=== PATIENT | male | born 1960 | race Caucasian/White ===

== ENCOUNTER → 2019-04-03 | Day surgery (SDC) | payer OTHER ==
[2019-03-23 11:39] LABS: BASOPHILS % 0.4 % (0.0-1.0); EOSINOPHILS # (AUTO) 0.1 (0.0-0.4); EOSINOPHILS % 1.8 % (0.0-6.0); HEMATOCRIT 48.8 % (38.2-49.6); HEMOGLOBIN 16.1 g/dL (14.0-18.0); LYMPHOCYTES # (AUTO) 1.5 (1.0-3.2); LYMPHOCYTES % 18.9 % (18.0-39.1); MEAN CORPUSCULAR HEMOGLOBIN 29.4 pg (28-32); MEAN CORPUSCULAR VOLUME 89.1 fL (81-99); MONOCYTES # (AUTO) 0.7 (0.2-0.8); MONOCYTES % 9.5 % (4.4-11.3); NEUTROPHILS # (AUTO) 5.3 (2.1-6.9); NEUTROPHILS % 68.9 % (38.7-80.0); PLATELET COUNT 194 x10e3/uL (140-360); RED BLOOD COUNT 5.48 x10e6/uL (4.3-5.7); RED CELL DISTRIBUTION WIDTH 13.5 % (11.7-14.4)
--- NOTE | 2019-03-23 12:18 | Diagnostic Imaging Report ---
EXAMINATION: CHEST 2 VIEWS INDICATION: Pre-operative COMPARISON: None FINDINGS: LINES/TUBES:None LUNGS:Mild biapical pleural parenchymal thickening/scarring. No focal consolidation or pulmonary edema. PLEURA:No pleural effusion or pneumothorax. MEDIASTINUM:The cardiomediastinal silhouette appears normal in size and shape. Atherosclerotic calcifications of the thoracic aorta. BONES/SOFT TISSUES:No acute osseous injury. ABDOMEN:No free air under the diaphragm. IMPRESSION: No focal pneumonia or pulmonary edema. Signed by: Tri Esquivel MD on 03/23/2019 12:15 PM
[2019-03-23 12:25] LABS: ANION GAP 13.4 mmol/L (8-16); CALCIUM 9.7 mg/dL (8.4-10.2); CREATININE, SERUM 1.27 mg/dL (0.72-1.25); POTASSIUM 4.4 mmol/L (3.5-5.1)
[~2019-04-03] MED LIST: ASPIRIN81 MG PO; ATORVASTATIN CA20 MG PO; BUPIVACAINE HCL 0.5% INJ 30 ML VIAL INJ ONE; CEFAZOLIN SOD 1 GM/NS 50ML 100 ML IV ONE; DEXAMETHASONE SOD PHOS INJ 4 MG/ML VIAL ONE; FENOFIBRATE145 MG PO; FENTANYL CITRATE/PF 100MCG/2 ML INJ ONE; JARDIANCE PO; KETOROLAC TROMETHAMINE 30 MG/ML VIAL ONE; LIDOCAINE HCL 2% LOCAL INJ 5 ML SDV VIAL INJ ONE; METFORMIN HCL500 MG PO; MIDAZOLAM HCL 2 MG/2 ML VIAL ONE; NEOSTIGMINE 1 MG/ML 10ML VIAL ONE; ONDANSETRON HCL INJ 2MG/ML 2ML 2 MG/ML VIAL ONE; PROPOFOL IV EMULSION 10 MG/ML 20 ML VIAL ONE; SEVOFLURANE INHAL SOLN 250 ML PEN BTL ONE
--- OUTSIDE RECORDS SUMMARY | 2019-04-03 05:53 | XMS REPORT ---
Author Author [facility] Address Unknown Phone Unavailable Care Team Providers [employer] Name Role Phone EHSAN SMITH Unavailable Unavailable Problems This patient has no known problems. Allergies, Adverse Reactions, Alerts This patient has no known allergies or adverse reactions. Medications This patient has no known medications. Results Test Description Test Time Test Comments Text Results Atomic Results Result Comments CHEST 2 VIEWS 2019-03-23 12:14:00 [place] [address] Patient Name: ALVERTO BOSTON MR #: [id number] : 1960 Age/Sex: 58/M Req #: [id number] [facility] Physician: Ordered by: EHSAN SMITH DPM Report #: [id number] Location: OR Room/Bed: Procedure: [id number] DX/CHEST 2 VIEWS Exam Date: 03/23/19 Exam Time: 1143 REPORT STATUS: Signed EXAMINATION: CHEST 2 VIEWS INDICATION: Pre-operative COMPARISON: None FINDINGS: LINES/TUBES:None LUNGS:Mild biapical pleural parenchymal thickening/scarring. No focal consolidation or pulmonary edema. PLEURA:No pleural effusion or pneumothorax. MEDIASTINUM:The cardiomediastinal silhouette appears normal in size and shape. Atherosclerotic calcifications of the thoracic aorta. BONES/SOFT TISSUES:No acute osseous injury. ABDOMEN:No free air under the diaphragm. IMPRESSION: No focal pneumonia or pulmonary edema. Signed by: Pratik Esquivel MD on 03/23/2019 12:15 PM Dictated By: PRATIK ESQUIVEL MD 14 Transcribed By: ESTHELA on 03/23/191214 COPY TO: EHSAN SMITH DPM
--- OUTSIDE RECORDS SUMMARY | 2019-04-03 05:54 | XMS REPORT ---
Author Author Admin, Sidman Organization Unknown Address Unknown Phone Unavailable PROBLEMS Condition Status Date Provider Notes Peripheral neuropathy, feet active Klaudia Cruz Paresthesia of foot active Klaudia Cruz left foot Psa, screening active Carolina Miguelina Erectile dysfunction active Carolina Miguelina Cellulitis /abscess active Carolina Miguelina Vision impairment, both eyes, impairment level not further specified active Mario Dexterberg Swelling, limb active Mario Foley Well adult active Mariorito Dexterberg BMI 36.0-36.9 active Mario Foley Neuropathic pain active Carolina Miguelina Anxiety active Carolina Miguelina Hx of palpitations active Carolina Miguelina Achilles tendonitis, right active Carolina Miguelina Heel pain, right active Carolina Miguelina Hypertriglyceridemia active Elizabeth Silveira Viral upper respiratory tract infection completed - Elizabeth Silveira Pre-op exam completed - Elizabeth Silveira Screening for malignant neoplasm, colon completed - Elizabeth Silveira Neuroma, foot completed - Elizabeth Silveira DYSURIA completed - Elizabeth Silveira DIABETES MELLITUS active Abbi Radha OBESITY active Abbi Radha HYPERGLYCEMIA completed - Abbi Garcia TINNITUS, CHRONIC, BILATERAL completed - Elizabeth Silveira TRANSAMINASES, SERUM, ELEVATED completed - Elizabeth Silveira Elevated ON statin HYPERLIPIDEMIA active Debbie Aj KNEE PAIN completed - Elizabeth Silveira left lateral knee - only after kneeling on floor URI active Carolina Miguelina GERD active Immanuel Hernandezi HYPOTHYROIDISM completed - Elizabeth Silveira ENCOUNTERS Date Type Provider Location Encounter Diagnosis - Ambulatory Encounter Klaudia Davis [facility] Peripheral neuropathy, feet - Ambulatory Encounter [facility] - [facility]ulatory Encounter Carolina Miguelina Carolina Miguelina Valeri Barnes [facility] UNK - Ambulatory Encounter Carolina Miguelina Carolina Miguelina LinkLogic [facility] UNK - Ambulatory Encounter Carolina Miguelina Carolina Miguelina LinkLogic [facility] UNK - Ambulatory Encounter Carolina Miguelina Carolina Miguelina [facility] UNK - Ambulatory Encounter Carolina Miguelina Carolina Miguelina LinkLogic [facility] UNK - Ambulatory Encounter Fax Status [facility] UNK - Ambulatory Encounter Fax Status [facility] UNK - Ambulatory Encounter Fax Status [facility] UNK - Ambulatory Encounter Fax Status [facility] UNK - Ambulatory Encounter Fax Status [facility] UNK - Ambulatory Encounter Fax Status [facility] UNK - Ambulatory Encounter Klaudia Cruz [facility] UNK - Ambulatory Encounter Klaudia Spainendez [facility] Paresthesia of foot - Ambulatory Encounter Carolina Miguelina Mcintyre [facility] UNK - Ambulatory Encounter Carolina Miguelina Mcintyre [facility] UNK - Ambulatory Encounter Carolina Miguelina Mcintyre Kathe Ryan Shi [facility] UNK - Ambulatory Encounter Fax Status [facility] Services UNK - Ambulatory Encounter [facility]laudia Cruz [facility] UN[facility] - Ambulatory Encounter Carolina Miguelina Mcintyre [facility] UNK - Ambulatory Encounter Carolina Miguelina Beachez [facility] Psa, screening - Ambulatory Encounter Carolina Miguelina Mcintyre Link[facility] UNK - Ambulatory Encounter Carolina Miguelina Mcintyre Link[facility] UNK - Ambulatory Encounter Fax Status [facility] Services UNK - Ambulatory Encounter Carolina Miguelina Mcintyre LinkLogic [facility] UNK - Ambulatory Encounter Carolina Miguelina King [facility] Erectile dysfunction - Ambulatory Encounter Carolina Miguelina Mcintyre [facility] UNK - Ambulatory Encounter Carolina Miguelina Zheng [facility] UNK - Ambulatory Encounter Sharlene VillatoroArensasha [facility] UNK - Ambulatory Encounter Carolina Miguelina Donnelly [facility] UNK - Ambulatory Encounter LSJ Care Coordination Desktop LinkLogic Sushma Donnelly [facility] UNK - Ambulatory Encounter Carolina Miguelina Mcintyre [facility] UNK - Ambulatory Encounter Carolina Miguelina Mcintyre LinkLogeduardo [facility] UNK - Ambulatory Encounter Carolina Miguelina Mcintyre [facility] UNK - Ambulatory Encounter Carolina Miguelina Orellana [facility] UNK - Ambulatory Encounter Sushma Donnelly [facility] UNK - Ambulatory Encounter Carolina Miguelina Mcintyre [facility] UNK - Ambulatory Encounter Carolina Miguelina Mcintyre LinkLogeduardo [facility] UNK - Ambulatory Encounter Carolina Miguelina Mcintyre [facility] UNK - Ambulatory Encounter Carolina Miguelina Mcintyre [facility] UNK - Ambulatory Encounter Carolina Miguelina Mcintyre Shawnamichael Loving [facility] UNK - Ambulatory Encounter Sushma Donnelly [facility] UNK - Ambulatory Encounter Carolina Miguelina Mcintyre [facility] UNK - Ambulatory Encounter Carolina Miguelina Mcintyre [facility] UNK - Ambulatory Encounter Carolina Miguelina Mcintyre Vanita Zheng [facility] URICellulitis /abscess - Ambulatory Encounter F[facility] - [facility] Encounter Brittney Dozier [facility] UNK - Ambulatory Encounter Brittney Dozier [facility] UNK - Ambulatory Encounter Fax Status [facility] UNK - [facility]ulatory [facility] - [facility]ulatory En[facility] - Ambulatory Encounter Mario Davis [facility] UNK - Ambulatory Encounter Mario Foley [facility] UNK - Ambulatory Encounter Mario [facility]oley [facility] UN[facility] - Ambulatory Encounter [facility] UN[facility] - Ambulatory Encounter Fax Status LinkLogic [facility] UNK - Ambulatory Encounter Mario Avilez [facility] BMI 36.0-36.9Well adultSwelling, limbVision impairment, both eyes, impairment level not further specified - Ambulatory Encounter [facility] - Ambulatory Encounter Carolina Mcintyre LinkLogic [facility] UNK - Ambulatory Encounter Carolina Mcintyre LinkLog[facility] UNK - Ambulatory Encounter Carolina Mcintyre [facility] UNK - Ambulatory Encounter Carolina Mcintyre [facility] UNK - Ambulatory Encounter Carolina Park [facility] UNK - Ambulatory Encounter Carolina Miguelina Carolina Miguelina [facility] UNK - Ambulatory Encounter Fax Status LinkLogic [facility] Services UNK - Ambulatory Encounter Fax Status LinkLogic [facility] Services UNK - Ambulatory Encounter Fax Status LinkLogic [facility] Services UNK - Ambulatory Encounter Sharlene Mensah MedAdherence [facility] UNK - Ambulatory Encounter Carolina Miguelina Figueroa Miguelina LinkLogic [facility] UNK - Ambulatory Encounter Sharlene Mensah [facility] UN[facility] - Ambulatory Encounter Carmen Loving [facility] UNK - Ambulatory Encounter Carolina Figueroa Miguelina [facility] UNK - Ambulatory Encounter Carolina Beasley [facility] Hx of palpitationsAnxietyNeuropathic pain - Ambulatory Encounter Mei De La O [facility] UNK - Ambulatory Encounter Valeri Barnes [facility] UNK - Ambulatory Encounter Valeri Barnes [facility] LinkLogic [facility] UNK - Ambulatory Encounter Carolina Figueroa Miguelina LinkLogic [facility] UNK - Ambulatory Encounter Mario Foley [facility] UN[facility] - Ambulatory Encounter Valeri Barnes [facility] UNK - Ambulatory Encounter Valeri Barnes [facility] UNK - Ambulatory Encounter Carolina Miguelina Mcintyre LinkLogic [facility] UNK - Ambulatory Encounter Carolina Miguelina Mcintyre [facility] UNK - Ambulatory Encounter Carolina Miguelina Loving [facility] UNK - Ambulatory Encounter Valorie Estrella [facility] UNK - Ambulatory Encounter Valorie Estrella [facility] UNK - Ambulatory Encounter Carolina Miguelina Mcintyre [facility] UNK - Ambulatory Encounter Carolina Miguelina Mcintyre LinkLogic [facility] UNK - Ambulatory Encounter Fax Status [facility] UNK - Ambulatory Encounter Fax Status [facility] UNK - Ambulatory Encounter Fax Status [facility] UNK - Ambulatory Encounter Alisson Carrero [facility] UNK - Ambulatory Encounter Carolina Miguelina Mcintyre [facility] UNK - Ambulatory Encounter Carolina Jungome Craolina Miguelina Danica Shi [facility] UNK - Ambulatory Encounter Carolina Miguelina Mcintyre LinkLogic [facility] UNK - Ambulatory Encounter Carolina Miguelina Carolina Miguelina LinkLogic [facility] UNK - Ambulatory Encounter Carolina Miguelina Carolina Miguelina Link[facility]ic [facility] UNK - Ambulatory Encounter Carolina Miguelina Carolina Miguelina LinkLogic [facility] UNK - Ambulatory Encounter Carolina Miguelina Carolina Miguelina LinkLog[facility] UNK - Ambulatory Encounter Carolina Mcintyre LinkLog[facility] UNK - Ambulatory Encounter Jigna Jurado [facility] UNK - Ambulatory Encounter Carolina Shi [facility] UNK - Ambulatory Encounter Vanita Oliver [facility] UNK - Ambulatory Encounter Carolina Mcintyre [facility] Achilles tendonitis, right - Ambulatory Encounter Fax Status [facility] UNK - Ambulatory Encounter Fax Status [facility] UNK - Ambulatory Encounter Fax Status LinkLogic [facility] Services UNK - Ambulatory Encounter Carolina Mcintyre [facility] UNK - Ambulatory Encounter Carolina Mcintyre Clarissa Avilez [facility] Heel pain, right - Ambulatory Encounter Carolina Mcintyre [facility] UNK - Ambulatory Encounter Carolina Miguelina Mcintyre LinkLogic [facility] UNK - Ambulatory Encounter Carolina Miguelina Mcintyre Link[facility] UNK - Ambulatory Encounter Carolina Miguelina Mcintyre [facility] UNK - Ambulatory Encounter Carolina Miguelina Mcintyre [facility] UNK - Ambulatory Encounter Carolina Miguelina Mcintyre Funmilayo Olsen [facility] UNK - Ambulatory Encounter Azul Cruz [facility] UNK - Ambulatory Encounter Azul Cruz [facility] UNK - Ambulatory Encounter Mario Foley [facility] UNK - [facility] - Ambulatory Encounter Valeri Johnson [facility] UNK - Ambulatory Encounter Tess Nunez [facility] UNK - Ambulatory Encounter Elizabeth Johnson Silveira [facility] UNK - Ambulatory Encounter Elizabeth Johnson Silveira [facility] UNK - Ambulatory Encounter Mario Scott [facility] HYPOTHYROIDISMHypertriglyceridemia - Ambulatory Encounter [facility] - Ambulatory Encounter Elizabeth Silveira [facility] UNK - Ambulatory Encounter LSJ Lab Support Desktop [facility] Johnson Silveira [facility] UNK - Ambulatory Encounter Elizabeth Silveira [facility] UNK - Ambulatory Encounter Elizabeth Silveira [facility] UNK - Ambulatory Encounter [facility]el [facility] KNEE PAINTRANSAMINASES, SERUM, ELEVATEDTINNITUS, CHRONIC, BILATERALDYSURIANeuroma, footScreening for malignant neoplasm, colonPre-op examViral upper respiratory tract infection - Ambulatory Encounter Elizabeth Silveira [facility] UNK - Ambulatory Encounter Ferny Moran [facility] UNK - Ambulatory Encounter Ferny Moran [facility] UNK - Ambulatory Encounter Lizzie Scott [facility] UNK - [facility] UNK - Ambulatory Encounter Elizabeth Rodriguezillo Elizabeth [facility] [place] UNK - Ambulatory Encounter Jigna Jurado [facility] Viral upper respiratory tract infection - Ambulatory Encounter Azul Cruz [facility] UNK - Ambulatory Encounter Azul Cruz [facility] UNK - Ambulatory Encounter Ferny Moran [facility] UNK - Ambulatory Encounter Ferny Moran [facility] UNK - Ambulatory Encounter Ferny Moran [facility] UNK - Ambulatory Encounter Ferny Moran [facility] UNK - Ambulatory Encounter Ferny Moran [facility] UNK - Ambulatory Encounter Ferny Moran [facility] UNK - Ambulatory Encounter Ferny Moran [facility] UNK - Ambulatory Encounter Ferny Moran [facility] UNK - Ambulatory Encounter Ferny Soares [facility] Pre-op exam - Ambulatory Encounter Funmilayo Johnson [facility] UNK - Ambulatory Encounter Fax Status [facility] Services UNK - Ambulatory Encounter Fax Status [facility] UNK - Ambulatory Encounter Fax Status [facility] UNK - Ambulatory Encounter Ferny Moran [facility] UNK - Ambulatory Encounter Kathe Ryan [facility] UNK - Ambulatory Encounter Ferny Moran [facility] UNK - Ambulatory Encounter Ferny Moran [facility] UNK - Ambulatory Encounter Ferny Rodriguez [facility] Neuroma, footScreening for malignant neoplasm, colon - Ambulatory Encounter Sharlene Mensah [facility] UNK - Ambulatory Encounter Sharlene Mensah [facility] UNK - Ambulatory Encounter Ferny Moran LinkLogeduardo [facility] UNK - Ambulatory Encounter Sharlene Makenna [facility] UNK - Ambulatory Encounter Sharlene Mensah [facility] UNK - Ambulatory Encounter Ferny Lane [facility] UNK - Ambulatory Encounter Ferny [facility] UNK - Ambulatory Encounter Ferny Moran LinkLogeduardo [facility] UNK - Ambulatory Encounter Ferny Moran [facility] UNK - Ambulatory Encounter Ferny Mroan [facility] UNK - Ambulatory Encounter Ferny Lane [facility] UNK - Ambulatory Encounter Carly Rodriguez [facility] UNK - Ambulatory Encounter Carly Rodriguez [facility] UNK - Ambulatory Encounter Ferny Correa [facility] UNK - Ambulatory Encounter Ferny Moran [facility] UNK - Ambulatory Encounter Sushma Donnelly [facility] UNK - Ambulatory Encounter Sharlene Mensah [facility] UNK - Ambulatory Encounter Sharlene VillatoroUniversity Of [facility]Log[facility] UNK - Ambulatory Encounter Ferny Moran [facility] UNK - Ambulatory Encounter Ferny Moran [facility] UNK - Ambulatory Encounter Ferny ClarosLogeduardo [facility] UNK - Ambulatory Encounter Suzie Barragan [facility] UNK - Ambulatory Encounter Ferny Larsen Barragan [facility] UNK - Ambulatory Encounter Salome Shi [facility] UNK - Ambulatory Encounter Edgar Grullon [facility] UNK - Ambulatory Encounter Abbi Garcia [facility] UNK - Ambulatory Encounter Christopher Sifuentes [facility] UNK - Ambulatory Encounter Jigna Goode Lillian [facility] UNK - Ambulatory Encounter Clarissa Sterling [facility] UNK - Ambulatory Encounter Clarissa Sterling [facility] UNK - Ambulatory Encounter Abbi Radhaspenser Go Radha [facility] UNK - Ambulatory Encounter LSJ Lab Support Desktop LinkLogic Clarissa Go Radha Barfieldima Radha [facility] UNK - Ambulatory Encounter Clarissa Sterling [facility] UNK - Ambulatory Encounter Clarissa Sterling [facility] UNK - Ambulatory Encounter Abbi Radhagay Go Radha [facility] UNK - Ambulatory Encounter LSJ Lab Support Desktop LinkLogic Clarissa Go Radha Barfieldima Radha [facility] UNK - Ambulatory Encounter Jigna Larsen [facility] HYPERGLYCEMIAOBESITYDIABETES MELLITUSDYSURIA - Ambulatory Encounter Ferny Morna [facility] UNK - Ambulatory Encounter Ferny Moran [facility] UNK - Ambulatory Encounter Ferny Donnelly [facility] UNK - Ambulatory Encounter Ferny Moran [facility] UNK - Ambulatory Encounter Ferny Lane [facility] UNK - Ambulatory Encounter Ferny Olsen [facility] HYPERGLYCEMIA - Ambulatory Encounter Dena Jay [facility] UNK - Ambulatory Encounter Clarissa Greerzohreh Jj [facility] UNK - Ambulatory Encounter Debbie [facility] - Ambulatory Encounter Debbie Aj Clarissa Curtis [facility] URIKNEE PAINHYPERLIPIDEMIATRANSAMINASES, SERUM, ELEVATEDTINNITUS, CHRONIC, BILATERAL - Ambulatory Encounter Tenriism Preload [facility] UNK - Ambulatory Encounter Tenriism Preload [facility] UNK - Ambulatory Encounter Tenriism Preload [facility] UNK - Ambulatory Encounter Tenriism Preload [facility] UNK - Ambulatory Encounter Tenriism Preload [facility] UNK - Ambulatory Encounter Tenriism Preload [facility] UNK - Ambulatory Encounter Tenriism Preload [facility] UNK - Ambulatory Encounter Tenriism Preload [facility] UNK - Ambulatory Encounter Tenriism Preload [facility] UNK - Ambulatory Encounter Tenriism Preload [facility] UNK - Ambulatory Encounter Tenriism Preload [facility] UNK - Ambulatory Encounter Tenriism Preload [facility] UNK - Ambulatory Encounter Tenriism Preload [facility] UNK - Ambulatory Encounter Tenriism Preload [facility] UNK - Ambulatory Encounter Tenriism Preload LinkLogic [facility] UNK - Ambulatory Encounter Tenriism Preload LinkLogic [facility] UNK - Ambulatory Encounter Tenriism Preload LinkLogic [facility] UNK - Ambulatory Encounter Tenriism Preload LinkLogic [facility] UNK - Ambulatory Encounter Tenriism Preload LinkLogic [facility] UNK - Ambulatory Encounter Tenriism Preload LinkLogic [facility] UNK - Ambulatory Encounter Tenriism Preload LinkLogic [facility] UNK - Ambulatory Encounter Tenriism Preload LinkLogic [facility] UNK - Ambulatory Encounter Tenriism Preload LinkLogic [facility] UNK - Ambulatory Encounter Tenriism Preload LinkLogic [facility] UNK - Ambulatory Encounter Tenriism Preload LinkLogic [facility] UNK - Ambulatory Encounter Tenriism Preload LinkLogic [facility] UNK - Ambulatory Encounter Tenriism Preload LinkLogic [facility] UNK - Ambulatory Encounter Tenriism Preload LinkLogic [facility] UNK - Ambulatory Encounter Tenriism Preload LinkLogic [facility] UNK - Ambulatory Encounter Tenriism Preload LinkLogic [facility] UNK - Ambulatory Encounter Tenriism Preload LinkLogic [facility] UNK - Ambulatory Encounter Tenriism Preload LinkLogic [facility] UNK - Ambulatory Encounter Tenriism Preload LinkLogic [facility] UNK - Ambulatory Encounter Tenriism Preload LinkLogic [facility] UNK - Ambulatory Encounter Tenriism Preload [facility] UNK - Ambulatory Encounter Tenriism Preload LinkLogic [facility] UNK - Ambulatory Encounter Tenriism Preload LinkLogic [facility] UNK - Ambulatory Encounter Tenriism Preload [facility] UNK - Ambulatory Encounter Tenriism Preload [facility] UNK - Ambulatory Encounter Tenriism Preload [facility] UNK - Ambulatory Encounter Tenriism Preload [facility] UNK - Ambulatory Encounter Tenriism Preload LinkLogic [facility] UNK - Ambulatory Encounter Tenriism Preload [facility] UNK - Ambulatory Encounter Tenriism Preload [facility] UNK - Ambulatory Encounter Tenriism Preload [facility] UNK - Ambulatory Encounter Zarina Sneed [facility] [facility] UNK - Ambulatory Encounter Derek Oliver [facility] HYPOTHYROIDISMGERDURI VITAL SIGNS No Information Available Allergies No Known Allergy Information REASON FOR REFERRAL Start Date - End Date Service - Podiatry - External - Cardiology - External - Endocrinology - Adult - X-RAY - X-RAY RESULTS Date Observation Value Provider Reference Range Interpretation Location prostate specific antigen 0.4 ng/mL [facility] 0.0-4.0 " microalbumin/creatinine ratio, urine <3.6 mg/g creat [facility] 0.0-30.0 " microalbumin/total urine volume <3.0 ug/mL [facility] Not Estab. " creatinine, random, urine 83.7 mg/dL [facility] Not Estab. " alanine aminotransferase (SGPT), serum 27 1/L [facility] 0-44 " aspartate aminotransferase (SGOT), serum 20 1/L [facility] 0-40 " alkaline phosphatase, serum 77 1/L [facility] 39-117 " bilirubin, serum, total 0.3 mg/dL [facility] 0.0-1.2 " albumin/globulin ratio, serum 2.1 [facility] 1.2-2.2 " globulin, serum 2.2 [facility] 1.5-4.5 " albumin, serum 4.6 g/dL [facility] 3.5-5.5 " protein, total, serum 6.8 g/dL [facility] 6.0-8.5 " calcium, serum 9.4 mg/dL [facility] 8.7-10.2 " carbon dioxide, venous blood 22 mmol/L [facility] 20-29 " chloride, serum 103 mmol/L [facility] 96-106 " potassium, serum 4.6 mmol/L [facility] 3.5-5.2 " sodium, serum 141 mmol/L [facility] 134-144 " urea nitrogen/creatinine ratio, serum 21 [facility] 9-20 High " eGFR if 82 mL/min/((173/100).m2) [facility] >59 " Estimated Glomerular Filtration Rate (calc) 71 mL/min/((173/100).m2) [facility] >59 " creatinine, serum 1.13 mg/dL [facility] 0.76-1.27 " urea nitrogen, blood 24 mg/dL [facility] 6-24 " blood glucose, random 95 mg/dL [facility] 65-99 " immature granulocytes, percentage of total cells, blood 0 % [facility] Not Estab. " basophil count, absolute 0.0 x10E3/uL [facility] 0.0-0.2 " Eosinophil Absolute Count 0.2 X10E3/UL [facility] 0.0-0.4 " monocyte count, blood, automated 0.6 X10E3/UL [facility] 0.1-0.9 " lymphocyte count, blood, automated 1.5 X10E3/UL [facility] 0.7-3.1 " Absolute Neutrophils 4.8 X10E3/UL [facility] 1.4-7.0 " basophils as percent of blood leukocytes 0 % [facility] Not Estab. " eosinophils as percent of blood leukocytes 3 % [facility] Not Estab. " monocytes as percent of blood leukocytes 9 % [facility] Not Estab. " lymphocytes as percent of blood leukocytes 21 % [facility] Not Estab. " neutrophils as percent of blood leukocytes 67 % [facility] Not Estab. " platelet count 190 X10E3/UL [facility] 150-450 " red blood cell distribution width 15.0 % [facility] 12.3-15.4 " mean corpuscular hemoglobin concentration, RBC 33.7 G/DL [facility] 31.5-35.7 " mean corpuscular hemoglobin, RBC 28.8 pg [facility] 26.6-33.0 " mean corpuscular volume, RBC 86 fL [facility] 79-97 " hematocrit, blood 47.2 % [facility] 37.5-51.0 " hemoglobin, blood 15.9 g/dL [facility] 13.0-17.7 " erythrocyte (RBC) count 5.52 X10E6/UL [facility] 4.14-5.80 " leukocyte count, blood 7.2 X10E3/UL [facility] 3.4-10.8 hemoglobin A1C, blood, as % of total hemoglobin 5.5 % Taniya Mcfarland " blood glucose, random 58 mg/dL Taniya Mcfarland hemoglobin A1C, blood, as % of total hemoglobin 7.1 % [facility] LDL cholesterol, serum TRIGHI mg/dL [facility] 0-99 " very low density lipoproteins VLDLCH mg/dL [facility] 5-40 " HDL cholesterol, serum 35 mg/dL [facility] >39 Low " triglyceride, serum, fasting 435 mg/dL [facility] 0-149 High " cholesterol, serum 277 mg/dL [facility] 100-199 High " alanine aminotransferase (SGPT), serum 40 1/L [facility] 0-44 " aspartate aminotransferase (SGOT), serum 31 1/L [facility] 0-40 " alkaline phosphatase, serum 70 1/L [facility] 39-117 " bilirubin, serum, total 0.2 mg/dL [facility] 0.0-1.2 " albumin/globulin ratio, serum 2.1 [facility] 1.2-2.2 " globulin, serum 2.3 [facility] 1.5-4.5 " albumin, serum 4.8 g/dL [facility] 3.5-5.5 " protein, total, serum 7.1 g/dL [facility] 6.0-8.5 " calcium, serum 9.7 mg/dL [facility] 8.7-10.2 " carbon dioxide, venous blood 22 mmol/L [facility] 20-29 " chloride, serum 102 mmol/L [facility] 96-106 " potassium, serum 4.3 mmol/L [facility] 3.5-5.2 " sodium, serum 144 mmol/L [facility] 134-144 " urea nitrogen/creatinine ratio, serum 17 [facility] 9-20 " eGFR if 100 mL/min/((173/100).m2) [facility] >59 " Estimated Glomerular Filtration Rate (calc) 87 mL/min/((173/100).m2) [facility] >59 " creatinine, serum 0.96 mg/dL [facility] 0.76-1.27 " urea nitrogen, blood 16 mg/dL [facility] 6-24 " blood glucose, random 70 mg/dL [facility] 65-99 " immature granulocytes, percentage of total cells, blood 0 % [facility] Not Estab. " basophil count, absolute 0.0 x10E3/uL [facility] 0.0-0.2 " Eosinophil Absolute Count 0.1 X10E3/UL [facility] 0.0-0.4 " monocyte count, blood, automated 0.4 X10E3/UL [facility] 0.1-0.9 " lymphocyte count, blood, automated 1.7 X10E3/UL [facility] 0.7-3.1 " Absolute Neutrophils 5.2 X10E3/UL [facility] 1.4-7.0 " basophils as percent of blood leukocytes 0 % [facility] Not Estab. " eosinophils as percent of blood leukocytes 1 % [facility] Not Estab. " monocytes as percent of blood leukocytes 6 % [facility] Not Estab. " lymphocytes as percent of blood leukocytes 23 % [facility] Not Estab. " neutrophils as percent of blood leukocytes 70 % [facility] Not Estab. " platelet count 270 X10E3/UL [facility] 150-379 " red blood cell distribution width 14.0 % [facility] 12.3-15.4 " mean corpuscular hemoglobin concentration, RBC 32.8 G/DL [facility] 31.5-35.7 " mean corpuscular hemoglobin, RBC 27.7 pg [facility] 26.6-33.0 " mean corpuscular volume, RBC 85 fL [facility] 79-97 " hematocrit, blood 47.3 % [facility] 37.5-51.0 " hemoglobin, blood 15.5 g/dL [facility] 13.0-17.7 " erythrocyte (RBC) count 5.60 X10E6/UL [facility] 4.14-5.80 " leukocyte count, blood 7.4 X10E3/UL [facility] 3.4-10.8 influenza virus A antigen negative Vanita Zheng " Microbial identification kit, rapid strep method negative Vanita Zheng thyroid stimulating hormone, serum 2.110 u[iU]/mL [facility] 0.450-4.500 " hemoglobin A1C, blood, as % of total hemoglobin 11.5 % [facility] 4.8-5.6 High " microalbumin/creatinine ratio, urine 147.4 MG/G CREAT [facility] 0.0-30.0 High " microalbumin/total urine volume 76.8 mg/L [facility] Not Estab. " creatinine, random, urine 52.1 mg/dL [facility] Not Estab. " LDL cholesterol, serum TRIGHI mg/dL [facility] 0-99 " very low density lipoproteins VLDLCH mg/dL [facility] 5-40 " HDL cholesterol, serum 3 mg/dL [facility] >39 Low " triglyceride, serum, fasting 95534 mg/dL [facility] 0-149 Panic high " cholesterol, serum 1230 mg/dL [facility] 100-199 Panic high " alanine aminotransferase (SGPT), serum 28 1/L [facility] 0-44 " aspartate aminotransferase (SGOT), serum 15 1/L [facility] 0-40 " alkaline phosphatase, serum 106 1/L [facility] 39-117 " bilirubin, serum, total <0.2 mg/dL [facility] 0.0-1.2 " albumin/globulin ratio, serum 1.8 [facility] 1.2-2.2 " globulin, serum 2.3 [facility] 1.5-4.5 " albumin, serum 4.2 g/dL [facility] 3.5-5.5 " protein, total, serum 6.5 g/dL [facility] 6.0-8.5 " calcium, serum 9.6 mg/dL [facility] 8.7-10.2 " carbon dioxide, venous blood 21 mmol/L [facility] 20-29 " chloride, serum 88 mmol/L [facility] 96-106 Low " potassium, serum 4.2 mmol/L [facility] 3.5-5.2 " sodium, serum 133 mmol/L [facility] 134-144 Low " urea nitrogen/creatinine ratio, serum 13 [facility] 9-20 " eGFR if 91 mL/min/((173/100).m2) [facility] >59 " Estimated Glomerular Filtration Rate (calc) 79 mL/min/((173/100).m2) [facility] >59 " creatinine, serum 1.04 mg/dL [facility] 0.76-1.27 " urea nitrogen, blood 14 mg/dL [facility] 6-24 " blood glucose, random 422 mg/dL [facility] 65-99 High " immature granulocytes, percentage of total cells, blood 0 % [facility] Not Estab. " basophil count, absolute 0.0 x10E3/uL [facility] 0.0-0.2 " Eosinophil Absolute Count 0.1 X10E3/UL [facility] 0.0-0.4 " monocyte count, blood, automated 0.7 X10E3/UL [facility] 0.1-0.9 " lymphocyte count, blood, automated 1.0 X10E3/UL [facility] 0.7-3.1 " Absolute Neutrophils 4.6 X10E3/UL [facility] 1.4-7.0 " basophils as percent of blood leukocytes 0 % [facility] Not Estab. " eosinophils as percent of blood leukocytes 1 % [facility] Not Estab. " monocytes as percent of blood leukocytes 11 % [facility] Not Estab. " lymphocytes as percent of blood leukocytes 16 % [facility] Not Estab. " neutrophils as percent of blood leukocytes 72 % [facility] Not Estab. " platelet count 182 X10E3/UL [facility] 150-379 " red blood cell distribution width 14.4 % [facility] 12.3-15.4 " mean corpuscular hemoglobin concentration, RBC 31.9 G/DL [facility] 31.5-35.7 " mean corpuscular hemoglobin, RBC 28.0 pg [facility] 26.6-33.0 " mean corpuscular volume, RBC 88 fL [facility] 79-97 " hematocrit, blood 41.2 % [facility] 37.5-51.0 " hemoglobin, blood 13.1 g/dL [facility] 13.0-17.7 " erythrocyte (RBC) count 4.69 X10E6/UL [facility] 4.14-5.80 " leukocyte count, blood 6.5 X10E3/UL [facility] 3.4-10.8 hemoglobin A1C, blood, as % of total hemoglobin 8.2 % [facility] 4.8-5.6 High " LDL cholesterol, serum TRIGHI mg/dL [facility] 0-99 " very low density lipoproteins VLDLCH mg/dL [facility] 5-40 " HDL cholesterol, serum 33 mg/dL [facility] >39 Low " triglyceride, serum, fasting 897 mg/dL [facility] 0-149 Panic high " cholesterol, serum 335 mg/dL [facility] 100-199 High " alanine aminotransferase (SGPT), serum 46 1/L [facility] 0-44 High " aspartate aminotransferase (SGOT), serum 29 1/L [facility] 0-40 " alkaline phosphatase, serum 78 1/L [facility] 39-117 " bilirubin, serum, total 0.3 mg/dL [facility] 0.0-1.2 " albumin/globulin ratio, serum 2.3 [facility] 1.2-2.2 High " globulin, serum 2.1 [facility] 1.5-4.5 " albumin, serum 4.9 g/dL [facility] 3.5-5.5 " protein, total, serum 7.0 g/dL [facility] 6.0-8.5 " calcium, serum 10.1 mg/dL [facility] 8.7-10.2 " carbon dioxide, venous blood 26 mmol/L [facility] 18-29 " chloride, serum 96 mmol/L [facility] 96-106 " potassium, serum 4.7 mmol/L [facility] 3.5-5.2 " sodium, serum 140 mmol/L [facility] 134-144 " urea nitrogen/creatinine ratio, serum 19 [facility] 9-20 " eGFR if 99 mL/min/((173/100).m2) [facility] >59 " Estimated Glomerular Filtration Rate (calc) 85 mL/min/((173/100).m2) [facility] >59 " creatinine, serum 0.98 mg/dL [facility] 0.76-1.27 " urea nitrogen, blood 19 mg/dL [facility] 6-24 " blood glucose, random 154 mg/dL [facility] 65-99 High " immature granulocytes, percentage of total cells, blood 0 % [facility] Not Estab. " basophil count, absolute 0.0 x10E3/uL [facility] 0.0-0.2 " Eosinophil Absolute Count 0.1 X10E3/UL [facility] 0.0-0.4 " monocyte count, blood, automated 0.6 X10E3/UL [facility] 0.1-0.9 " lymphocyte count, blood, automated 2.0 X10E3/UL [facility] 0.7-3.1 " Absolute Neutrophils 4.9 X10E3/UL [facility] 1.4-7.0 " basophils as percent of blood leukocytes 0 % [facility] Not Estab. " eosinophils as percent of blood leukocytes 1 % [facility] Not Estab. " monocytes as percent of blood leukocytes 8 % [facility] Not Estab. " lymphocytes as percent of blood leukocytes 26 % [facility] Not Estab. " neutrophils as percent of blood leukocytes 65 % [facility] Not Estab. " platelet count 224 X10E3/UL [facility] 150-379 " red blood cell distribution width 14.0 % [facility] 12.3-15.4 " mean corpuscular hemoglobin concentration, RBC 34.3 G/DL [facility] 31.5-35.7 " mean corpuscular hemoglobin, RBC 29.7 pg [facility] 26.6-33.0 " mean corpuscular volume, RBC 87 fL [facility] 79-97 " hematocrit, blood 46.6 % [facility] 37.5-51.0 " hemoglobin, blood 16.0 g/dL [facility] 13.0-17.7 " erythrocyte (RBC) count 5.38 X10E6/UL [facility] 4.14-5.80 " leukocyte count, blood 7.6 X10E3/UL [facility] 3.4-10.8 blood glucose, random 100 mg/dL Carmen Loving LDL cholesterol, serum TRIGHI mg/dL [facility] 0-99 " very low density lipoproteins VLDLCH mg/dL [facility] 5-40 " HDL cholesterol, serum 25 mg/dL [facility] >39 Low " triglyceride, serum, fasting 1561 mg/dL [facility] 0-149 Panic high " cholesterol, serum 375 mg/dL [facility] 100-199 High " alanine aminotransferase (SGPT), serum 60 1/L [facility] 0-44 High " aspartate aminotransferase (SGOT), serum 39 1/L [facility] 0-40 " alkaline phosphatase, serum 60 1/L [facility] 39-117 " bilirubin, serum, total 0.2 mg/dL [facility] 0.0-1.2 " albumin/globulin ratio, serum 1.7 [facility] 1.2-2.2 " globulin, serum 2.5 [facility] 1.5-4.5 " albumin, serum 4.3 g/dL [facility] 3.5-5.5 " protein, total, serum 6.8 g/dL [facility] 6.0-8.5 " calcium, serum 9.5 mg/dL [facility] 8.7-10.2 " carbon dioxide, venous blood 26 mmol/L [facility] 18-29 " chloride, serum 97 mmol/L [facility] 96-106 " potassium, serum 4.9 mmol/L [facility] 3.5-5.2 " sodium, serum 139 mmol/L [facility] 134-144 " urea nitrogen/creatinine ratio, serum 18 [facility] 9-20 " eGFR if 94 mL/min/((173/100).m2) [facility] >59 " Estimated Glomerular Filtration Rate (calc) 81 mL/min/((173/100).m2) [facility] >59 " creatinine, serum 1.02 mg/dL [facility] 0.76-1.27 " urea nitrogen, blood 18 mg/dL [facility] 6-24 " blood glucose, random 169 mg/dL [facility] 65-99 High blood glucose, random 92 mg/dL Shawna Guzmanrez blood glucose, 2 hours postprandial 234 mg/dL Shawna Arguetaierrez thyroid stimulating hormone, serum 4.000 u[iU]/mL [facility] 0.450-4.500 " hemoglobin A1C, blood, as % of total hemoglobin 8.2 % [facility] 4.8-5.6 High " LDL cholesterol, serum TRIGHI mg/dL [facility] 0-99 " very low density lipoproteins VLDLCH mg/dL [facility] 5-40 " HDL cholesterol, serum 41 mg/dL [facility] >39 " triglyceride, serum, fasting 401 mg/dL [facility] 0-149 High " cholesterol, serum 270 mg/dL [facility] 100-199 High " alanine aminotransferase (SGPT), serum 42 1/L [facility] 0-44 " aspartate aminotransferase (SGOT), serum 34 1/L [facility] 0-40 " alkaline phosphatase, serum 56 1/L [facility] 39-117 " bilirubin, serum, total 0.2 mg/dL [facility] 0.0-1.2 " albumin/globulin ratio, serum 2.2 [facility] 1.2-2.2 " globulin, serum 2.1 [facility] 1.5-4.5 " albumin, serum 4.6 g/dL [facility] 3.5-5.5 " protein, total, serum 6.7 g/dL [facility] 6.0-8.5 " calcium, serum 9.2 mg/dL [facility] 8.7-10.2 " carbon dioxide, venous blood 25 mmol/L [facility] 18-29 " chloride, serum 99 mmol/L [facility] 96-106 " potassium, serum 4.7 mmol/L [facility] 3.5-5.2 " sodium, serum 140 mmol/L [facility] 134-144 " urea nitrogen/creatinine ratio, serum 14 [facility] 9-20 " eGFR if 89 mL/min/((173/100).m2) [facility] >59 " Estimated Glomerular Filtration Rate (calc) 77 mL/min/((173/100).m2) [facility] >59 " creatinine, serum 1.07 mg/dL [facility] 0.76-1.27 " urea nitrogen, blood 15 mg/dL [facility] 6-24 " blood glucose, random 115 mg/dL [facility] 65-99 High blood glucose, random 78 mg/dL Kathryn Olsen thyroid stimulating hormone, serum 2.830 u[iU]/mL [facility] 0.450-4.500 " hemoglobin A1C, blood, as % of total hemoglobin 11.4 % [facility] 4.8-5.6 High " microalbumin/creatinine ratio, urine 11.7 MG/G CREAT [facility] 0.0-30.0 " microalbumin/total urine volume 7.0 mg/L [facility] Not Estab. " creatinine, random, urine 59.7 mg/dL [facility] Not Estab. " LDL cholesterol, serum TRIGHI mg/dL [facility] 0-99 " very low density lipoproteins VLDLCH mg/dL [facility] 5-40 " HDL cholesterol, serum 42 mg/dL [facility] >39 " triglyceride, serum, fasting 2741 mg/dL [facility] 0-149 Panic high " cholesterol, serum 638 mg/dL [facility] 100-199 Panic high " alanine aminotransferase (SGPT), serum 23 1/L [facility] 0-44 " aspartate aminotransferase (SGOT), serum 18 1/L [facility] 0-40 " alkaline phosphatase, serum 101 1/L [facility] 39-117 " bilirubin, serum, total 0.2 mg/dL [facility] 0.0-1.2 " albumin/globulin ratio, serum 1.9 [facility] 1.2-2.2 " globulin, serum 2.5 [facility] 1.5-4.5 " albumin, serum 4.7 g/dL [facility] 3.5-5.5 " protein, total, serum 7.2 g/dL [facility] 6.0-8.5 " calcium, serum 9.7 mg/dL [facility] 8.7-10.2 " carbon dioxide, venous blood 23 mmol/L [facility] 18-29 " chloride, serum 90 mmol/L [facility] 96-106 Low " potassium, serum 4.7 mmol/L [facility] 3.5-5.2 " sodium, serum 134 mmol/L [facility] 134-144 " urea nitrogen/creatinine ratio, serum 17 [facility] 9-20 " eGFR if 110 mL/min/((173/100).m2) [facility] >59 " Estimated Glomerular Filtration Rate (calc) 95 mL/min/((173/100).m2) [facility] >59 " creatinine, serum 0.88 mg/dL [facility] 0.76-1.27 " urea nitrogen, blood 15 mg/dL [facility] 6-24 " blood glucose, random 394 mg/dL [facility] 65-99 High blood glucose, fasting 414 mg/dL Ana Tellez hemoglobin A1C, blood, as % of total hemoglobin 6.3 % [facility] 4.8-5.6 High blood glucose, random 108 mg/dL Carly Rodriguez hemoglobin A1C, blood, as % of total hemoglobin 6.2 % [facility] 4.8-5.6 High blood glucose, random 89 mg/dL Amie Correa PSA (prostate specific antigent), recommendation and action Pt states he does not know if he has had this screening Sushma Donnelly hemoglobin A1C, blood, as % of total hemoglobin 9.8 % [facility] 4.8-5.6 High gamma glutamyl transferase, serum 62 1/L [facility] 0-65 " prothrombin time (patient) 10.7 s [facility] 9.1-12.0 " international normalized ratio (INR) 1.0 [facility] 0.8-1.2 " hepatitis C antibody, serum <0.1 [facility] 0.0-0.9 " hepatitis B virus core antibody, IgM, PT, serum, quantitative Negative [facility] Negative " hepatitis B surface antigen Negative [facility] Negative " hepatitis A antibody, IgM Negative [facility] Negative " alanine aminotransferase (SGPT), serum 120 1/L [facility] 0-44 High " aspartate aminotransferase (SGOT), serum 96 1/L [facility] 0-40 High " alkaline phosphatase, serum 95 1/L [facility] 39-117 " bilirubin, serum, direct 0.16 mg/dL [facility] 0.00-0.40 " bilirubin, serum, total 0.4 mg/dL [facility] 0.0-1.2 " albumin, serum 4.9 g/dL [facility] 3.5-5.5 " protein, total, serum 7.0 g/dL [facility] 6.0-8.5 LDL cholesterol, serum 128 mg/dL [facility] 0-99 High " very low density lipoproteins 55 mg/dL [facility] 5-40 High " HDL cholesterol, serum 36 mg/dL [facility] >39 Low " triglyceride, serum, fasting 275 mg/dL [facility] 0-149 High " cholesterol, serum 219 mg/dL [facility] 100-199 High " alanine aminotransferase (SGPT), serum 144 1/L [facility] 0-44 High " aspartate aminotransferase (SGOT), serum 140 1/L [facility] 0-40 High " alkaline phosphatase, serum 97 1/L [facility] 39-117 " bilirubin, serum, total 0.5 mg/dL [facility] 0.0-1.2 " albumin/globulin ratio, serum 2.5 [facility] 1.1-2.5 " globulin, serum 1.9 [facility] 1.5-4.5 " albumin, serum 4.8 g/dL [facility] 3.5-5.5 " protein, total, serum 6.7 g/dL [facility] 6.0-8.5 " calcium, serum 9.4 mg/dL [facility] 8.7-10.2 " carbon dioxide, venous blood 26 mmol/L [facility] 18-29 " chloride, serum 100 mmol/L [facility] 97-108 " potassium, serum 4.3 mmol/L [facility] 3.5-5.2 " sodium, serum 141 mmol/L [facility] 134-144 " urea nitrogen/creatinine ratio, serum 14 [facility] 9-20 " eGFR if 96 mL/min/((173/100).m2) [facility] >59 " Estimated Glomerular Filtration Rate (calc) 83 mL/min/((173/100).m2) [facility] >59 " creatinine, serum 1.02 mg/dL [facility] 0.76-1.27 " urea nitrogen, blood 14 mg/dL [facility] 6-24 " blood glucose, random 117 mg/dL [facility] 65-99 High urine culture No growth [facility] " Neisseria gonorrhoeae DNA probe Negative [facility] Negative " chlamydia DNA probe Negative [facility] Negative glucose, urine, semiquantitative 2+ Suzie Barragan " bilirubin, urine small Suzie Barragan " ketones, urine, by test strip moderate (40) Suzie Barragan " specific gravity, urine 1.030 Suzie Barragan " blood in urine (hemoglobin) by dipstick negative Suzie Barragan " pH, urine, semiquantitative 5.0 Suzie Barragan " protein, urine, semiquantitative (dipstick) trace Suzie Barragan " urobilinogen, urine, semiquantitative (dipstick) 0.2 Suzie Barragan " nitrite, urine, semiquantitative negative Suzie Barragan " leukocyte esterase, urine, by dipstick negative Suzie Barragan " blood glucose, random 222 mg/dL Abbi Radha hemoglobin A1C, blood, as % of total hemoglobin 10.0 % [facility] 4.8-5.6 High thyroid stimulating hormone, serum 3.900 u[iU]/mL [facility] 0.450-4.500 " LDL cholesterol, serum Triglyceride result indicated is too high for an accurate LDL mg/dL [facility] 0-99 " very low density lipoproteins The calculation for the VLDL cholesterol is not valid when mg/dL [facility] 5-40 " HDL cholesterol, serum 32 mg/dL [facility] >39 Low " triglyceride, serum, fasting 628 mg/dL [facility] 0-149 Panic high " cholesterol, serum 281 mg/dL [facility] 100-199 High " alanine aminotransferase (SGPT), serum 60 1/L [facility] 0-44 High " aspartate aminotransferase (SGOT), serum 43 1/L [facility] 0-40 High " alkaline phosphatase, serum 91 1/L [facility] 39-117 " bilirubin, serum, total 0.4 mg/dL [facility] 0.0-1.2 " albumin/globulin ratio, serum 2.0 [facility] 1.1-2.5 " globulin, serum 2.4 [facility] 1.5-4.5 " albumin, serum 4.7 g/dL [facility] 3.5-5.5 " protein, total, serum 7.1 g/dL [facility] 6.0-8.5 " calcium, serum 9.2 mg/dL [facility] 8.7-10.2 " carbon dioxide, venous blood 26 mmol/L [facility] 19-28 " chloride, serum 99 mmol/L [facility] 97-108 " potassium, serum 4.3 mmol/L [facility] 3.5-5.2 " sodium, serum 140 mmol/L [facility] 134-144 " urea nitrogen/creatinine ratio, serum 7 [facility] 9-20 Low " eGFR if 85 mL/min/((173/100).m2) [facility] >59 " Estimated Glomerular Filtration Rate (calc) 74 mL/min/((173/100).m2) [facility] >59 " creatinine, serum 1.13 mg/dL [facility] 0.76-1.27 " urea nitrogen, blood 8 mg/dL [facility] 6-24 " blood glucose, random 133 mg/dL [facility] 65-99 High influenza B virus antigen negative Vanita Oliver " influenza virus A antigen negative Vanita Oliver HISTORY OF IMMUNIZATIONS No Information Available HISTORY OF MEDICATION USE Medication Instructions Dates Provider Comments SILDENAFIL CITRATE 20 MG ORAL TABLET 1-2 tab By Mouth 1 hrs before activity Carolina Miguelina GLUCOTROL 10 MG ORAL TABLET 1 tab By Mouth Twice a Day Carolina Miguelina AZITHROMYCIN 250 MG ORAL TABLET 2 tablets by mouth on day one then one tablet by mouth each day for a total of 5 days Carolina Miguelina MUPIROCIN 2 % EXTERNAL OINTMENT Apply to affected skin three times daily for 7- 10 days Carolina Miguelina AUGMENTIN 875-125 MG ORAL TABLET 1 by mouth twice a day Carolina Miguelina TESSALON PERLES 100 MG ORAL CAPSULE 1 by mouth 3 times a day as needed for cough Carolina Miguelina ATORVASTATIN TABS 40MG TAKE 1 TABLET DAILY Valeri Barnes MedAdherence GABAPENTIN 100 MG ORAL CAPSULE 1 by mouth three times a day Carolina Miguelina HYDROXYZINE HCL 25 MG ORAL TABLET 1 by mouth every 6 hours as needed Carolina Mcintyre BHARGAV 60 MG ORAL CAPSULE 1 tab By Mouth with each fat containing meal, Carolina Mcintyre max 3 tabs/day NIACIN ER 500 MG ORAL CAPSULE EXTENDED RELEASE 1 tab By Mouth Every qhs - Carolina Miguelina GLYBURIDE 5 MG ORAL TABLET 1 by mouth twice a day Carolina Miguelina COVERALL BOOTS/DISPOSABLE/UNIV use with ambulation Carolina Miguelina One walking boot, ICD 10 M79.671 GLYBURIDE 2.5 MG ORAL TABLET 1 by mouth twice a day - Carolina Miguelina GLYBURIDE 2.5 MG ORAL TABLET 1 by mouth twice a day - Carolina Miguelina METFORMIN HCL 1000 MG ORAL TABLET 1 by mouth twice a day Carolina Miguelina FENOFIBRATE 160 MG ORAL TABLET take one tablet By Mouth daily Valeri Barnes MedAdherence GLIPIZIDE 10 MG ORAL TABLET take one tablet daily - Carolina Miguelina ASPIRIN 81 MG ORAL TABLET 1 by mouth every day Christopher Grullon FISH OIL 1000 MG ORAL CAPSULE 2 by mouth two times a day with meals - Elizabeth Silveira PRAVACHOL 20 MG ORAL TABLET 1 by mouth every pm - Christopher Grullon METFORMIN HCL 500 MG ORAL TABLET 1 by mouth twice a day Elizabeth Silveira NEXIUM 20 MG ORAL CAPSULE DELAYED RELEASE 1 by mouth daily - Elizabeth Silveira LEVOTHYROXINE SODIUM 125 MCG ORAL TABLET One tab by mouth daily - Elizabeth Silveira SOCIAL HISTORY Date Observation Value Provider time of call 03/25/2019 11:58 AM Jess Thurman drug use, illicit Never Taniya Bartolo " alcohol use Previously Taniyajuliana Mcfarland " social history E&M . Not homeless. Born in [facility]. City: [place]. State: [place]. Employed full-time. manager recovery since 1997. Highest education level: associate's degree. Gender of partner(s): female. Taniya Mcfarland " social history reviewed E&M reviewed today Taniya Mcfarland " assessment of health literacy ([facility] 2014 Standards, 3C10) Adequate Taniya Mcfarland " passive cigarette smoke exposure No Taniya Mcfarland " smoking status never smoker Taniya Mcfarland " Exercise Program Referral T Taniya Mcfarland " Weight Management Counseling Provided T Taniya Mcfarland " Nutrition intervention T Taniya Mcfarland drug use, illicit Never Taniya Mcfarland " alcohol use Previously Tnaiya Mcfarland " social history E&M . Not homeless. Born in [facility]. City: [place]. State: [place]. Employed full-time. manager recovery since 1997. Highest education level: associate's degree. Gender of partner(s): female. Taniya Mcfarland " social history reviewed E&M reviewed today Taniya Mcfarland " assessment of health literacy ([facility] 2014 Standards, 3C10) Adequate Taniya Mcfarland " passive cigarette smoke exposure No Taniya Mcfarland " smoking status never smoker Taniya Mcfarland " Exercise Program Referral T Taniya Mcfarland " Weight Management Counseling Provided T Taniya Mcfarland " Nutrition intervention T Taniya Mcfarland time of call 10/06/2018 8:15 AM Christopher King Exercise Program Referral T Carolina Miguelina " Weight Management Counseling Provided T Carolina Miguelina " Nutrition intervention T Carolina Miguelina " assessment of health literacy ([facility] 2014 Standards, 3C10) Adequate Vanita Zheng " passive cigarette smoke exposure No Vanita Zheng " drug use, illicit Never Vanita Zheng " alcohol use Previously Vanita Zheng " smoking status never smoker Vanita Zheng " social history E&M . Not homeless. Born in [facility]. City: [place]. State: [place]. Employed full-time. manager recovery since 1997. Highest education level: associate's degree. Gender of partner(s): female. Vanita Zheng " social history reviewed E&M reviewed today Vanita Zheng Exercise Program Referral T Carolina Miguelina " Weight Management Counseling Provided T Carolina Miguelina " Nutrition intervention T Carolina Miguelina drug use, illicit Never Glenna Orellana " alcohol use Previously Glenna Orellana " social history E&M . Not homeless. Born in [facility]. City: [place]. State: [place]. Employed full-time. manager recovery since 1997. Highest education level: associate's degree. Gender of partner(s): female. Glenna Orellana " social history reviewed E&M reviewed today Glenna Orellana " assessment of health literacy ([facility] 2014 Standards, 3C10) Adequate Glenna Orellana " passive cigarette smoke exposure No Glenna Orellana " smoking status never smoker Glenna Orellana Exercise Program Referral Higinio Mcintyre " Weight Management Counseling Provided Higinio Mcintyre " Nutrition intervention Higinio Mcintrye drug use, illicit Never Carmen Loving " alcohol use Previously Carmen Loving " social history E&M . Not homeless. Born in [facility]. City: [place]. State: [place]. Employed full-time. manager recovery since 1997. Highest education level: associate's degree. Gender of partner(s): female. Carmen Loving " social history reviewed E&M reviewed today Carmen Loving " assessment of health literacy ([facility] 2014 Standards, 3C10) Adequate Carmen Loving " passive cigarette smoke exposure No Carmen Loving " smoking status never smoker Carmen Loving assessment of health literacy ([facility] 2014 Standards, 3C10) Adequate Vanita Zheng " passive cigarette smoke exposure No Vanita Zheng " drug use, illicit Never Vanita Zheng " smoking status never smoker Vanita Zheng " alcohol use Previously Vanita Zheng " social history E&M . Not homeless. Born in [facility]. City: [place]. State: [place]. Employed full-time. manager recovery since 1997. Highest education level: associate's degree. Gender of partner(s): female. Vanita Zheng " social history reviewed E&M reviewed today Vanita Bryanales drug use, illicit Never Lizzie Curtis " alcohol use Previously Lizzie Curtis " social history E&M . Not homeless. Born in [facility]. City: [place]. State: [place]. Employed full-time. manager recovery since 1997. Highest education level: associate's degree. Gender of partner(s): female. Lizzie Acevedo " social history reviewed E&M reviewed today Lizzie Acevedo " assessment of health literacy ([facility] 2014 Standards, 3C10) Adequate Lizzie Acevedo " passive cigarette smoke exposure No Lizzie Acevedo " smoking status never smoker Lizzie Acevedo " Exercise Program Referral T Lizzie Acevedo " Weight Management Counseling Provided T Lizzie Acevedo " Nutrition intervention T Lizzie Acevedo social history E&M . Not homeless. Born in [facility]. City: [place]. State: [place]. Employed full-time. manager recovery since 1997. Highest education level: associate's degree. Gender of partner(s): female. Gail Park " social history reviewed E&M reviewed today Gail Park " assessment of health literacy ([facility] 2014 Standards, 3C10) Adequate Gail Park " passive cigarette smoke exposure No Gail Park " smoking status never smoker Gail Park Exercise Program Referral T Carolina Miguelina " Weight Management Counseling Provided T Carolina Miguelina " Nutrition intervention T Carolina Miguelina " drug use, illicit Never Gale Pool " alcohol use Previously Gale Pool " social history E&M . Not homeless. Born in [facility]. City: [place]. State: [place]. Employed full-time. manager recovery since 1997. Highest education level: associate's degree. Gender of partner(s): female. Gale Pool " social history reviewed E&M reviewed today Gale Pool " assessment of health literacy ([facility] 2014 Standards, 3C10) Adequate Gale Pool " passive cigarette smoke exposure No Gale Pool " smoking status never smoker Gale Pool Exercise Program Referral T Carolina Miguelina " Weight Management Counseling Provided T Carolina Miguelina " Nutrition intervention T Carolina Miguelina " drug use, illicit Never Carmen Loving " alcohol use Previously Carmen Loving " social history E&M . Not homeless. Born in [facility]. City: [place]. State: [place]. Employed full-time. manager recovery since 1997. Highest education level: associate's degree. Gender of partner(s): female. Carmen Loving " social history reviewed E&M reviewed today Carmen Loving " passive cigarette smoke exposure Yes Carmen Loving " smoking status never smoker Carmen Loving " assessment of health literacy ([facility] 2014 Standards, 3C10) Adequate Carmen Loving Exercise Program Referral T Carolina Miguelina " Weight Management Counseling Provided T Carolina Miguelina " Nutrition intervention T Carolina Miguelina " drug use, illicit Never Shawna Shi " alcohol use Previously Shawna Shi " social history E&M . Not homeless. Born in [facility]. City: [place]. [place]: [place]. Employed full-time. manager recovery since 1997. Highest education level: associate's degree. Gender of partner(s): female. Shawna Shi " social history reviewed E&M reviewed today Shawna Guzmanrez " passive cigarette smoke exposure Yes Shawna Guzmanrez " smoking status never smoker Shawna Guzmanrez drug use, illicit Never Shawnamichael Guzmanrez " alcohol use Previously Shawna Shi " social history E&M . Not homeless. Born in [facility]. City: [place]. [place]: [place] Employed full-time. manager recovery since 1997. Highest education level: associate's degree. Gender of partner(s): female. Shawna Guzmanrez " social history reviewed E&M reviewed today Shawna Guzmanrez " passive cigarette smoke exposure No Shawna Shi " smoking status never smoker Shawna Guzmanrez drug use, illicit Never Stef Reji " alcohol use Previously Stef Reji " social history E&M . Not homeless. Born in [facility]. City: [place]. [place]: [place] Employed full-time. manager recovery since 1997. Highest education level: associate's degree. Gender of partner(s): female. Stef Reij " social history reviewed E&M reviewed today Stef Reji " passive cigarette smoke exposure No Stef Reji " smoking status never smoker Stef Reji " assessment of health literacy ([facility] 2014 Standards, 3C10) Adequate Stef Reji " Exercise Program Referral T Stef Reji " Weight Management Counseling Provided T Stef Reji " Nutrition intervention T Stef Reji Exercise Program Referral T Carolina Miguelina " Weight Management Counseling Provided T Carolina Miguelina " Nutrition intervention T Carolina Miguelina " social history E&M . Not homeless. Born in [facility]. City: [place]. [place]: [place]. Employed full-time. manager recovery since 1997. Highest education level: associate's degree. Gender of partner(s): female. Kathryn Wilsonz " social history reviewed E&M reviewed today Kathrynmar Marsvez " passive cigarette smoke exposure No Kathryn Olsen " smoking status never smoker Kathrynmar Marsvez " assessment of health literacy ([facility] 2014 Standards, 3C10) Adequate Kathryn Olsen " passive cigarette smoke exposure No Lizzie Barnettvez " smoking status never smoker Lizzie Scott " assessment of health literacy ([facility] 2014 Standards, 3C10) Adequate Lizzie Barnettvez " Exercise Program Referral T Lizzie Scott " Weight Management Counseling Provided T Lizzie Barnettvez " Nutrition intervention T Lizzie Barnettvez " social history E&M . Not homeless. Born in [facility]. City: [place]. State: [place]. Employed full-time. manager recovery since 1997. Highest education level: associate's degree. Gender of partner(s): female. Lizzie Riveraz " social history reviewed E&M reviewed today Lizzie Scott Exercise Program Referral T Ana Tellez " Weight Management Counseling Provided T Ana Tellez " Nutrition intervention T Ana Tellez " social history E&M . Not homeless. Born in [facility]. City: [place]. State: [place]. Employed full-time. manager recovery since 1997. Highest education level: associate's degree. Gender of partner(s): female. Anainessa Tellez " social history reviewed E&M reviewed today Ana Tellez " passive cigarette smoke exposure No Ana Tellez " smoking status never smoker Ana Tellez drug use, illicit Never Stef Reji " alcohol use Previously Stef Reji " social history E&M . Not homeless. Born in [facility]. City: [place]. [place]: [place] Employed full-time. manager recovery since 1997. Highest education level: associate's degree. Gender of partner(s): female. Stef Reji " social history reviewed E&M reviewed today Stef Reij " passive cigarette smoke exposure No Stef Reji " smoking status never smoker Stef Reji " Exercise Program Referral T Stef Reji " Weight Management Counseling Provided T Stef Reji " Nutrition intervention T Stef Reji drug use, illicit Never Kasey Soares " alcohol use Previously Kaseyherb Soares " social history E&M . Not homeless. Born in [facility]. City: [place]. State: [place]. Employed full-time. manager recovery since 1997. Highest education level: associate's degree. Gender of partner(s): female. Kasey Fany " social history reviewed E&M reviewed today Kasey Stephenskins " passive cigarette smoke exposure No Kasey Soares " smoking status never smoker Kaseyherb Soares time of call 05/09/2015 3:36 PM Funmilayo Johnson Exercise Program Referral Higinio Moran " Weight Management Counseling Provided Higinio Moran " Nutrition intervention Higinio Moran " drug use, illicit Never Carly Rodriguez " alcohol use Previously Carly Rodriguez " sex at male Carly Jennifer " social history E&M . Not homeless. Born in [facility]. City: [place]. [place]: [place]. Employed full-time. manager recovery since 1997. Highest education level: associate's degree. Gender of partner(s): female. Carly Rodriguez " social history reviewed E&M reviewed today Carly Rodriguez " passive cigarette smoke exposure No Carly Rodriguez " smoking status never smoker Carly Rodriguez drug use, illicit Never Amie Correa " alcohol use Previously Amie Correa " passive cigarette smoke exposure No Amie Correa " smoking status never smoker Amie Correa drug use, illicit Never Suzie Barragan " alcohol use Previously Suzie Barragan " passive cigarette smoke exposure No Suzie Barragan " smoking status never smoker Suzie Barragan time of call 01/25/2014 9:56 AM Edgar Sifuentes smoking status never smoker Rupa Snyder " passive cigarette smoke exposure No Rupa Speara social history E&M . Not homeless. Born in [facility]. City: [place]. [place]: [place] Employed full-time. manager recovery since 1997. Highest education level: associate's degree. Gender of partner(s): female. Abbi Garcia " social history reviewed E&M reviewed today Abbi Garcia " drug use, illicit Never Suzie Barragan " alcohol use Previously Suzie Barragan " passive cigarette smoke exposure No Suzie Barragan " smoking status never smoker Suzie Barragan time of call 12/30/2013 8:07 AM Sushma Short passive cigarette smoke exposure No Kathryn Olsen " smoking status never smoker Kathryn Olsen " passive cigarette smoke exposure No Clarissa Curtis " smoking status never smoker Clarissa Curtis smoking status former [employer] smoking status former [employer] smoking status former [employer] smoking status former [employer] smoking status former [employer] drug use, illicit Never Vanita Oliver " alcohol use Previously Vanita Oliver " social history reviewed E&M reviewed today Vanita Oliver " social history E&M . Not homeless. Born in [facility]. City: [place]. [place]: [place] Employed full-time. manager recovery since 1997. Highest education level: associate's degree. Gender of partner(s): female. Vanita Oliver " Occupation #1 manager recovery Vanita Oliver " patient considered to be homeless No Vanita Oliver " passive cigarette smoke exposure No Vanita Oliver " smoking status former smoker Vanita Oliver FUNCTIONAL STATUS No Information Available MENTAL STATUS Date Observation Value Provider assessment of judgment and insight E&M limited Klaudia Cruz " mental status examination: orientation E&M oriented to time, place, and person Klaudia Cruz " assessment of mood and affect E&M pleasant Klaudia Cruz " Generalized Anxiety Disorder Questionnaire - Question 2 0 Taniya Mcfarland " Generalized Anxiety Disorder Questionnaire - Question 1 0 Taniya Mcfarland Generalized Anxiety Disorder Questionnaire - Question 2 0 Taniya Mcfarland " Generalized Anxiety Disorder Questionnaire - Question 1 0 Taniya Mcfarland assessment of mood and affect E&M no depression, anxiety, or agitation Craolina Miguelina " mental status examination: orientation E&M oriented to time, place, and person Carolina Miguelina " Generalized Anxiety Disorder Questionnaire - Question 2 0 Vanita Zheng " Generalized Anxiety Disorder Questionnaire - Question 1 0 Vanita Zheng assessment of judgment and insight E&M intact Carolina Miguelina " mental status examination: orientation E&M oriented to time, place, and person Carolina Miguelina " assessment of mood and affect E&M no depression, anxiety, or agitation Carolina Miguelina assessment of judgment and insight E&M intact Carolina Miguelina Generalized Anxiety Disorder Questionnaire - Question 2 0 Glenna Orellana " Generalized Anxiety Disorder Questionnaire - Question 1 0 Glenna Orellana mental status examination: orientation E&M oriented to time, place, and person Carolina Miguelina " assessment of judgment and insight E&M intact Carolina Miguelina Generalized Anxiety Disorder Questionnaire - Question 2 0 Carmen Loving " Generalized Anxiety Disorder Questionnaire - Question 1 0 Carmen Bazanrera Generalized Anxiety Disorder Questionnaire - Question 2 0 Vanita Zheng " Generalized Anxiety Disorder Questionnaire - Question 1 0 Vanita Zheng assessment of judgment and insight E&M intact Mario Foley " mental status examination: orientation E&M oriented to time, place, and person Mario Foley " assessment of mood and affect E&M no depression, anxiety, or agitation Mario Foley " Generalized Anxiety Disorder Questionnaire - Question 2 0 Lizzie Acevedo " Generalized Anxiety Disorder Questionnaire - Question 1 0 Lizzie Acevedo assessment of judgment and insight E&M intact Carolina Miguelina " assessment of mood and affect E&M no depression, anxiety, or agitation Carolina Miguelina " Generalized Anxiety Disorder Questionnaire - Question 2 0 Gail Park " Generalized Anxiety Disorder Questionnaire - Question 1 0 Gail Park assessment of judgment and insight E&M intact Carolina Miguelina " assessment of mood and affect E&M no depression, anxiety, or agitation Carolina Miguelina " Generalized Anxiety Disorder Questionnaire - Question 2 0 Gale Schroeder " Generalized Anxiety Disorder Questionnaire - Question 1 0 Gale Schroeder assessment of mood and affect E&M no depression, anxiety, or agitation Carolina Miguelina " Generalized Anxiety Disorder Questionnaire - Question 2 0 Carmen Loving " Generalized Anxiety Disorder Questionnaire - Question 1 0 Carmne Bazanrera mental status examination: orientation E&M oriented to time, place, and person Carolina Miguelina " Generalized Anxiety Disorder Questionnaire - Question 2 0 Shawna Shi " Generalized Anxiety Disorder Questionnaire - Question 1 0 Shawna Shi Generalized Anxiety Disorder Questionnaire - Question 2 0 Stef Mendoza " Generalized Anxiety Disorder Questionnaire - Question 1 0 Stef Mendoza assessment of judgment and insight E&M intact Carolina Miguelina " mental status examination: orientation E&M oriented to time, place, and person Carolina Miguelina " assessment of mood and affect E&M no depression, anxiety, or agitation Carolina Miguelina " Generalized Anxiety Disorder Questionnaire - Question 2 0 Kathryn Olsen " Generalized Anxiety Disorder Questionnaire - Question 1 0 Kathryn Olsen assessment of judgment and insight E&M intact Elizabeth Silveira " mental status examination: orientation E&M oriented to time, place, and person Elizabeth Silveira " assessment of mood and affect E&M no depression, anxiety, or agitation Elizabeth Silveira " Generalized Anxiety Disorder Questionnaire - Question 2 0 Lizzie Scott " Generalized Anxiety Disorder Questionnaire - Question 1 0 Lizzie Scott assessment of judgment and insight E&M intact Elizabeth Silveira " mental status examination: orientation E&M oriented to time, place, and person Elizabeth Silveira " assessment of mood and affect E&M no depression, anxiety, or agitation Elizabeth Silveira " Generalized Anxiety Disorder Questionnaire - Question 2 0 Ana Tellez " Generalized Anxiety Disorder Questionnaire - Question 1 0 Ana Tellez Generalized Anxiety Disorder Questionnaire - Question 2 0 Stef Mendoza " Generalized Anxiety Disorder Questionnaire - Question 1 0 Stef Mendoza assessment of judgment and insight E&M intact Ferny Moran " assessment of mood and affect E&M no depression, anxiety, or agitation Ferny Moran " Generalized Anxiety Disorder Questionnaire - Question 2 0 Kasey Soares " Generalized Anxiety Disorder Questionnaire - Question 1 0 Kasey Soares assessment of judgment and insight E&M intact Ferny Moran " assessment of mood and affect E&M no depression, anxiety, or agitation Ferny Moran " Generalized Anxiety Disorder Questionnaire - Question 2 0 Carly Rodriguez " Generalized Anxiety Disorder Questionnaire - Question 1 0 Carly Rodriguez assessment of judgment and insight E&M intact Ferny Moran " assessment of mood and affect E&M no depression, anxiety, or agitation Ferny Moran " Generalized Anxiety Disorder Questionnaire - Question 2 0 Amie Correa " Generalized Anxiety Disorder Questionnaire - Question 1 0 Amie Correa assessment of judgment and insight E&M intact Ferny Moran " assessment of mood and affect E&M no depression, anxiety, or agitation Ferny Moran " Generalized Anxiety Disorder Questionnaire - Question 2 0 Suzie Barragan " Generalized Anxiety Disorder Questionnaire - Question 1 0 Suzie Barragan Generalized Anxiety Disorder Questionnaire - Question 2 0 Rupa Snyder " Generalized Anxiety Disorder Questionnaire - Question 1 0 Rupa Snyder assessment of judgment and insight E&M intact Abbi Garcia " assessment of mood and affect E&M no depression, anxiety, or agitation Abbimisha Chambersan " Generalized Anxiety Disorder Questionnaire - Question 2 0 Suzie Barragan " Generalized Anxiety Disorder Questionnaire - Question 1 0 Suzie Barragan assessment of judgment and insight E&M intact Ferny Moran " assessment of mood and affect E&M no depression, anxiety, or agitation Ferny Moran " Generalized Anxiety Disorder Questionnaire - Question 2 1 Kathryn Raúl " Generalized Anxiety Disorder Questionnaire - Question 1 3 Kathryn Olsen Generalized Anxiety Disorder Questionnaire - Question 2 0 Clarissa Acevedo " Generalized Anxiety Disorder Questionnaire - Question 1 0 Clarissa Acevedo Generalized Anxiety Disorder Questionnaire - Question 2 0 Vanita Oliver " Generalized Anxiety Disorder Questionnaire - Question 1 0 Vanita Oliver MEDICAL EQUIPMENT No Information Available FAMILY HISTORY No Information Available INSURANCE PROVIDERS No Information Available ADVANCE DIRECTIVES No Information Available TREATMENT PLAN Date Name Microalb/Creat Ratio, Randm Ur PSA, Serum (Serial Monitor) Comp. Metabolic Panel (14) CBC With Differential/Platelet Comp. Metabolic Panel (14) CBC With Differential/Platelet Lipid Panel FIT- Fecal immunoassay test TSH Microalb/Creat Ratio, Randm Ur Hemoglobin A1c Lipid Panel Comp. Metabolic Panel (14) CBC With Differential/Platelet Hemoglobin A1c Lipid Panel Comp. Metabolic Panel (14) CBC With Differential/Platelet Lipid Panel Comp. Metabolic Panel (14) Lipid Panel TSH Rfx on Abnormal to Free T4 Hemoglobin A1c Comp. Metabolic Panel (14) TSH Microalb/Creat Ratio, Randm Ur Hemoglobin A1c Lipid Panel Comp. Metabolic Panel (14) FIT- Fecal immunoassay test Hemoglobin A1c Hemoglobin A1c Hemoglobin A1c GGT Hepatitis Panel (4) Prothrombin Time (PT) with INR Hepatic Function Panel (7) Chlamydia/GC Amplification Urine Culture, Routine Comp. Metabolic Panel (14) Lipid Panel Hemoglobin A1c TSH Lipid Panel Comp. Metabolic Panel (14) - - - - - refer KALI! - - - Est Patient Exp Problem - 28344 Est Patient Exp Problem - 75566 HEMOGLOBIN A1C - In House Est Patient Detailed - 91517 Est Patient Detailed - 44695 Est Patient Exp Problem - 31427 Est Patient Detailed - 94310 Est Patient Well Exam (40 - 64 Yrs) - 27439 Est Patient Detailed - 14952 Est Patient Detailed - 38284 Est Patient Detailed - 14177 Est Patient Exp Problem - 38366 Est Patient Exp Problem - 41986 Est Patient Exp Problem - 07925 Est Patient Exp Problem - 36946 Est Patient Exp Problem - 68850 General Patient Education Est Patient Exp Problem - 36333 Est Patient Exp Problem - 06517 Est Patient Detailed - 52692 Est Patient Exp Problem - 25730 Est Patient Exp Problem - 57005 Glucose Stick Est Patient Exp Problem - 46382 Est Patient Exp Problem - 79377 Est Patient Exp Problem - 51882 Est Patient Exp Problem - 36069 Est Patient Detailed - 62753 Est Patient Exp Problem - 70691 HISTORY OF PROCEDURES Procedure Date Procedure Name Provider Procedure Notes Status HEMOGLOBIN A1C - In House Carolina Miguelina Merle Flannery Visit completed Glucose Stick Ferny Moran completed GOALS No Information Available HEALTH CONCERNS No Information Available
[2019-04-03 11:50] VITALS: BP 122/71
--- NOTE | 2019-04-04 02:23 | Operative Report ---
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 TITLE OF OPERATION: Plantar neurolysis of the 2nd and 3rd intermetatarsal spaces, nerves with neurectomy of the left foot. Microscopic evaluation was used. PROCEDURE IN DETAIL: The patient was taken to the operating room in a mildly sedated state, placed up on the operating table in supine position. Following induction of general anesthetic, the left lower extremity was elevated to 60 degrees to exsanguinate before inflating the pneumatic thigh tourniquet to 300 mmHg to create good hemostasis. Left lower extremity was placed on the operating table prior to performing the following procedure. Procedure #1: Neurolysis of the 2nd intermetatarsal space nerve of the left foot and an approximate 12 cm plantar incision was placed from distal 2nd intermetatarsal space all the way to the central arch of the left foot, the incision was deepened via sharp and blunt dissection on the level of the plantar fascia. Plantar fascia was in the areas overlying the intermetatarsal nerves. The nerves themselves were identified proximally and traced distally. All superficial bleeders were electrocoagulated. Bleeding was minimal. The nerve itself having thus been traced. It was noted all the way into the central intermetatarsal space where multiple areas of extreme fibrosis from previous surgeries and injections. These intermetatarsal adhesions were released and neurolysis was accomplished. It was noted that the nerve itself was significantly deformed at the intermetatarsal space level and therefore, it was transected sharply much more proximally than the interspace to allow for a complete neurectomy of the 2nd intermetatarsal space nerve. The 2nd interspace thus having been freed and the nerve removed, the area was irrigated with copious amounts of sterile saline solution. Further dissection then occurred at the level of the 3rd intermetatarsal space. The proximal nerve was dissected as it advanced distally toward the 3rd intermetatarsal space. A great amount of fibrous scar tissue was noted along that area as well. Microscopic evaluation was used in the 2nd and 3rd intermetatarsal space, both define the areas of adhesions. The transverse ligament had previously been sectioned by previous surgeon. The fibrous adhesions were released. The proximal nerve extension traced under the plantar fascia and transected sharply due to extreme nerve damage being noted. The area was irrigated with copious amounts of sterile saline solution. Human tissue allograft was used to facilitate closure and to encase the nerve endings to prevent Recurrence. This having been accomplished with the nerve roots buried into the muscle belly with human tissue allograft overlying, the area had been appropriately irrigated. Deep closure and all superficial bleeders and deep bleeders were electrocauterized. A TLS drain was inserted. This having been accomplished, the graft was closed over with 3-0 Vicryl, 4-0 and 3-0 nylon. The appropriate mildly compressive dressings were applied. Posterior splint applied. Released the pneumatic thigh tourniquet showed normal hyperemic flush to all digits of the left foot. The patient left the operating room with vital signs stable in apparent satisfactory condition having tolerated both anesthetic and procedure very well. GIOVANNA Faustin/SON /[id number]
== END | disposition home or self-care (01) ==
LOC: OR 05:39
PROVIDERS: ATTEND Podiatrist Foot Surgery
DX: G57.62 Lesion of plantar nerve, left lower limb (principal); K21.9 Gastro-esophageal reflux disease without esophagitis; E11.9 Type 2 diabetes mellitus without complications; E07.9 Disorder of thyroid, unspecified; F41.9 Anxiety disorder, unspecified; Z01.810 Encounter for preprocedural cardiovascular examination; Z01.812 Encounter for preprocedural laboratory examination; Z01.818 Encounter for other preprocedural examination; Z79.84 Long term (current) use of oral hypoglycemic drugs; Z79.82 Long term (current) use of aspirin
CPT/HCPCS: 28080 ×2; 36415 ×2; 71046; 80048; 82948; 85025; 88304; 93005; J0690; J1100; J1885; J2001; J2250; J2405; J2704; J2710; J3010; Q4100

== ENCOUNTER → 2020-03-18 | Day surgery (SDC) | payer OTHER ==
[2020-03-15 09:25] LABS: BASOPHILS % 0.4 % (0.0-1.0); EOSINOPHILS # (AUTO) 0.2 (0.0-0.4); HEMATOCRIT 46.7 % (38.2-49.6); HEMOGLOBIN 14.6 g/dL (14.0-18.0); LYMPHOCYTES # (AUTO) 1.5 (1.0-3.2); MEAN CORPUSCULAR HEMOGLOBIN 27.2 pg (28-32); MEAN CORPUSCULAR HGB CONC 31.3 g/dL (31-35); MEAN CORPUSCULAR VOLUME 87.1 fL (81-99); MONOCYTES # (AUTO) 0.7 (0.2-0.8); MONOCYTES % 9.6 % (4.4-11.3); NEUTROPHILS # (AUTO) 4.6 (2.1-6.9); NEUTROPHILS % 65.7 % (38.7-80.0); PLATELET COUNT 209 x10e3/uL (140-360); RED BLOOD COUNT 5.36 x10e6/uL (4.3-5.7); RED CELL DISTRIBUTION WIDTH 13.5 % (11.7-14.4)
--- NOTE | 2020-03-15 09:34 | Diagnostic Imaging Report ---
EXAMINATION: CHEST 2 VIEWS INDICATION: Preop for foot surgery ^[id number] ^[id number] ^PRE-OP COMPARISON: 03/23/2019 FINDINGS: TUBES and LINES: None. LUNGS: Lungs are well inflated. Lungs are clear. There is no evidence of pneumonia or pulmonary edema. PLEURA: No pleural effusion or pneumothorax. HEART AND MEDIASTINUM: The cardiomediastinal silhouette is unremarkable. BONES AND SOFT TISSUES: No acute osseous lesion. Soft tissues are unremarkable. UPPER ABDOMEN: No free air under the diaphragm. IMPRESSION: No acute thoracic abnormality. Signed by: Dr. Ialn Sheikh M.D. on 03/15/2020 9:30 AM
[2020-03-15 10:14] LABS: ANION GAP 14.1 mmol/L (8-16); CALCIUM 9.2 mg/dL (8.4-10.2); CREATININE, SERUM 1.29 mg/dL (0.72-1.25); POTASSIUM 4.1 mmol/L (3.5-5.1)
[~2020-03-18] MED LIST changes: +ACETAMINOPHEN/CODEINE 300MG - 30MG TAB ONE; +BUPIVACAINE HCL 0.5% 10ML MPF VIAL INJ ONE; -BUPIVACAINE HCL 0.5% INJ 30 ML VIAL INJ ONE; +DIGOXIN125 MCG PO; +ELIQUIS5 MG PO; +EPHEDRINE SULFATE INJ 50 MG/ML VIAL ONE; +GLIMEPIRIDE2 MG PO; +GLIPIZIDE5 MG PO; +METOPROLOL TART25 MG PO
[2020-03-18 09:55] VITALS: BP 133/62
--- NOTE | 2020-03-21 09:14 | Operative Report ---
DATE OF PROCEDURE: 03/18/2020 SURGEON: Marcello Campbell DPM PREOPERATIVE DIAGNOSES: 1. Ruptured peroneal tendon with peroneal retinacular tear, right foot. 2. Attenuated partially torn anterior talofibular ligament, also right foot. POSTOPERATIVE DIAGNOSES: 1. Ruptured peroneal tendon with peroneal retinacular tear, right foot. 2. Attenuated partially torn anterior talofibular ligament, also right foot. TITLE OF THE OPERATION: 1. Repair of the peroneal tendon with repair of the peroneal retinaculum on the right side. 2. Repair of the anterior talofibular ligament, right foot. ANESTHESIA: General endotracheal. HEMOSTASIS: A right thigh tourniquet at 350 mmHg. PROCEDURE IN DETAIL: The patient was taken to the operating room in a mildly sedated state and placed on the operating table in supine position. Following induction of general anesthetic, the right lower extremity was elevated to 60 degrees to exsanguinate before inflating the pneumatic thigh tourniquet to 350 mmHg to create hemostasis. The right lower extremity was placed on the operating table prior to performing following procedure. Procedure #1 was repair of the peroneal tendon rupture on the right foot and ankle and approximate 6 cm lateral curvilinear incision was placed overlying the peroneus brevis tendon of the right foot. Incision was deepened via sharp and blunt dissection on to the level of the peroneal tendon retinaculum. This was noted to be ruptured with significant tenosynovitis and inflammatory tissue in the area. The inflammatory tissue was resected and debrided. The actual ruptured tendon was identified. It was noted that the peroneus longus tendon below had previously been repaired and was functionally intact. This brevis tendon was noted to have multiple partial-thickness stairs and several full-thickness tears through the central portion. The torn and dystrophic segments of tendon were resected and sent to pathology. The area was irrigated with copious amounts of sterile saline solution. Deep closure and tendon repair were performed with #2 FiberWire. This having been accomplished in a buried technique. A human tissue allograft tendon sheath grafting was performed overlying the repaired tendon. A retinacular repair was then performed overlying the repaired tendon and the area was irrigated once again with copious amounts of sterile saline solution deep closure with 3-0 Vicryl and skin closure with 4-0 nylon throughout the procedure. All superficial bleeders were electrocoagulated. Care was taken to identify and retract all vital structures and both neurological structures and arterial structures were retracted from harm's way without incident. After closure with 3-0 Vicryl and 4-0 nylon, attention was directed to procedure #2 to the area of the anterior talofibular ligament. A transverse ligament repair was performed and the linear incision was placed overlying the anterior to posterior fibers of the anterior talofibular ligament. Care was taken to identify and retract all vital structures encountered. The calcaneofibular ligament was noted within the confines of the ankle joint as well. An elliptical excision was performed of the ruptured and attenuated ligament. An Arthrex anchor was inserted into the lateral tendon repair space and into the fibula with the appropriate drill. This had a #2 FiberWire attached and was used to perform a [id number] repair of the anterior talofibular ligament. This having been accomplished, the areas was irrigated with copious amounts of sterile saline solution and deep closure was 3-0 Vicryl, subcutaneous closure with 4-0 Vicryl and 4-0 nylon. A human tissue allograft segment had been applied to supplement the repair in the area of the anterior talofibular ligament as grafting as well. This having been accomplished, the areas were then blocked with 0.5 Marcaine Decadron [place] and the appropriate mildly compressive dressings were applied. Posterior splint was applied and this was done in an everted manner to remove pressure from the repaired and grafted ligament and tendon segments. A release of the pneumatic thigh tourniquet showed a normal hyperemic flush to all digits of the right foot and the patient left the operating room. Vital signs stable in apparent satisfactory condition, having tolerated both anesthetic and procedure very well. GIOVANNA aFustin/SON /[id number]
== END | disposition home or self-care (01) ==
LOC: OR 05:27
PROVIDERS: ATTEND Podiatrist Foot Surgery
DX: S96.811A Strain of other specified muscles and tendons at ankle and foot level, right foot, initial encounter (principal); S93.491A Sprain of other ligament of right ankle, initial encounter; M65.871 Other synovitis and tenosynovitis, right ankle and foot; I10 Essential (primary) hypertension; E78.5 Hyperlipidemia, unspecified; I48.91 Unspecified atrial fibrillation; E11.9 Type 2 diabetes mellitus without complications; X58.XXXA Exposure to other specified factors, initial encounter; Z01.810 Encounter for preprocedural cardiovascular examination; Z01.812 Encounter for preprocedural laboratory examination; Z01.818 Encounter for other preprocedural examination; Z11.59 Encounter for screening for other viral diseases; Z79.02 Long term (current) use of antithrombotics/antiplatelets; Z79.84 Long term (current) use of oral hypoglycemic drugs; Z87.891 Personal history of nicotine dependence
CPT/HCPCS: 27658; 27695; 28200; 36415 ×2; 71046; 80048; 82948; 85025; 88305; 93005; C1713; J0690; J1100; J1885; J2001; J2250; J2405; J2704; J2710; J3010; U0002; V2790; 88304

== ENCOUNTER 2023-12-16 17:00 | Inpatient (IN) | payer OTHER ==
[~2023-12-16] VITALS: Ht 180.3 cm; Wt 111.1 kg
[~2023-12-16 17:00] MED LIST changes: -ACETAMINOPHEN/CODEINE 300MG - 30MG TAB ONE; -BUPIVACAINE HCL 0.5% 10ML MPF VIAL INJ ONE; -CEFAZOLIN SOD 1 GM/NS 50ML 100 ML IV ONE; -DEXAMETHASONE SOD PHOS INJ 4 MG/ML VIAL ONE; -EPHEDRINE SULFATE INJ 50 MG/ML VIAL ONE; -FENTANYL CITRATE/PF 100MCG/2 ML INJ ONE; +HUMALOG SC; -KETOROLAC TROMETHAMINE 30 MG/ML VIAL ONE; +LANTUS 3ML100 UNITS/ SC; -LIDOCAINE HCL 2% LOCAL INJ 5 ML SDV VIAL INJ ONE; -MIDAZOLAM HCL 2 MG/2 ML VIAL ONE; +MULTI-VITAMIN1 EACH PO; -NEOSTIGMINE 1 MG/ML 10ML VIAL ONE; -ONDANSETRON HCL INJ 2MG/ML 2ML 2 MG/ML VIAL ONE; +OZEMPIC0.25 MG/02 SC; -PROPOFOL IV EMULSION 10 MG/ML 20 ML VIAL ONE; -SEVOFLURANE INHAL SOLN 250 ML PEN BTL ONE
[2023-12-16 17:25] VITALS: TEMP 99.9
[2023-12-16 18:01] LABS: BASOPHILS % 0.2 % (0.0-1.0); EOSINOPHILS # (AUTO) 0.1 (0.0-0.4); EOSINOPHILS % 0.4 % (0.0-6.0); HEMATOCRIT 40.8 % (38.2-49.6); HEMOGLOBIN 14.1 g/dL (14.0-18.0); LYMPHOCYTES # (AUTO) 1.1 (1.0-3.2); LYMPHOCYTES % 9.2 % (18.0-39.1); MEAN CORPUSCULAR HEMOGLOBIN 30.3 pg (28-32); MEAN CORPUSCULAR HGB CONC 34.6 g/dL (31-35); MEAN CORPUSCULAR VOLUME 87.7 fL (81-99); MONOCYTES # (AUTO) 1.2 (0.2-0.8); MONOCYTES % 9.9 % (4.4-11.3); NEUTROPHILS # (AUTO) 9.7 (2.1-6.9); PLATELET COUNT 183 x10e3/uL (140-360); RED BLOOD COUNT 4.65 x10e6/uL (4.3-5.7); RED CELL DISTRIBUTION WIDTH 13.1 % (11.7-14.4); WHITE BLOOD COUNT 12.13 x10e3/uL (4.8-10.8)
[2023-12-16] MEDS: SODIUM CHLORIDE 0.9% 1000ML 1,000 ML IV STA (18:16)
[2023-12-16] MEDS: Morphine 4mg INJECTION 4 MG/ML INJ IV STA (18:17)
[2023-12-16] MEDS: ACETAMINOPHEN 325 MG TAB PO STA (18:17)
[2023-12-16] MEDS: ONDANSETRON HCL INJ 2MG/ML 2ML 2 MG/ML VIAL IV STA (18:18)
[2023-12-16 18:20] LABS: ALBUMIN 3.8 g/dL (3.5-5.0); ALBUMIN/GLOBULIN RATIO 1.1 (0.8-2.0); ANION GAP 16.3 mmol/L (8-16); BILIRUBIN,TOTAL 0.4 mg/dL (0.2-1.2); CALCIUM 8.7 mg/dL (8.4-10.2); CREATININE, SERUM 1.33 mg/dL (0.72-1.25); MAGNESIUM 1.5 MG/DL (1.3-2.1); POTASSIUM 4.3 mmol/L (3.5-5.1); TOTAL PROTEIN 7.3 g/dL (6.5-8.1)
[2023-12-16 20:04] LABS: ABG HCO3 25 mmol/L (22-26); ABG PCO2 42 mmHg (35-45); ABG PH 7.38 (7.35-7.45); ABG PO2 77 mmHg (80-105); ABG TCO2 26
[2023-12-16 20:05] VITALS: PULSE 101; RESP 18; O2SAT 97
[2023-12-16 20:57] VITALS: PULSE 99; RESP 18
[2023-12-16] MEDS: Morphine 4mg INJECTION 4 MG/ML INJ IV PRN (21:00)
[2023-12-16] MEDS: ONDANSETRON HCL INJ 2MG/ML 2ML 2 MG/ML VIAL IV PRN (21:01)
[2023-12-16] MEDS ORDERED: DEXTROSE 50% SYRINGE 50 ML IV PRN (21:30)
[2023-12-16] MEDS: INSULIN REGULAR, HUMAN 100 UNIT/1 ML SQ ONE (21:52)
[2023-12-16 22:31] VITALS: BP 150/99; PULSE 107; RESP 20; TEMP 98.1; O2SAT 97
[2023-12-16] MEDS: SODIUM CHLORIDE 0.9% 1000ML 1,000 ML IV SCH (22:59)
[2023-12-16 23:10] VITALS: BP 153/71; PULSE 101; RESP 18; O2SAT 96
[2023-12-17] VITALS (9 sets, daily range): BP systolic 109–154; BP diastolic 58–81; PULSE 90–101; RESP 16–20; TEMP 98.4–211.8; O2SAT 94–99
[2023-12-17 05:14] LABS: BASOPHILS % 0.3 % (0.0-1.0); EOSINOPHILS % 0.5 % (0.0-6.0); HEMATOCRIT 36.5 % (38.2-49.6); HEMOGLOBIN 12.1 g/dL (14.0-18.0); LYMPHOCYTES # (AUTO) 0.9 (1.0-3.2); LYMPHOCYTES % 11.4 % (18.0-39.1); MEAN CORPUSCULAR HEMOGLOBIN 29.7 pg (28-32); MEAN CORPUSCULAR HGB CONC 33.2 g/dL (31-35); MEAN CORPUSCULAR VOLUME 89.5 fL (81-99); MONOCYTES # (AUTO) 0.9 (0.2-0.8); MONOCYTES % 10.9 % (4.4-11.3); NEUTROPHILS % 76.6 % (38.7-80.0); PLATELET COUNT 128 x10e3/uL (140-360); RED BLOOD COUNT 4.08 x10e6/uL (4.3-5.7); RED CELL DISTRIBUTION WIDTH 12.8 % (11.7-14.4); WHITE BLOOD COUNT 7.87 x10e3/uL (4.8-10.8)
[2023-12-17 06:28] LABS: ALBUMIN 3.1 g/dL (3.5-5.0); ALBUMIN/GLOBULIN RATIO 1.1 (0.8-2.0); ANION GAP 13.9 mmol/L (8-16); BILIRUBIN,TOTAL 0.6 mg/dL (0.2-1.2); CALCIUM 8.1 mg/dL (8.4-10.2); CREATININE, SERUM 1.02 mg/dL (0.72-1.25); POTASSIUM 3.9 mmol/L (3.5-5.1); TOTAL PROTEIN 5.8 g/dL (6.5-8.1)
[2023-12-17] MEDS: INSULIN REGULAR, HUMAN 100 UNIT/1 ML SQ SCH (07:30)
[2023-12-17] MEDS ORDERED: FENTANYL CITRATE/PF 100MCG/2 ML INJ ONE (10:36)
[2023-12-17] MEDS ORDERED: HYDRALAZINE HCL 20 MG/ML VIAL IV PRN (13:00)
[2023-12-17] MEDS ORDERED: ACETAMINOPHEN 325 MG TAB PO PRN (13:00)
[2023-12-17] MEDS ORDERED: PROPOFOL IV EMULSION 10 MG/ML 20 ML VIAL ONE (13:43)
[2023-12-17] MEDS ORDERED: LIDOCAINE HCL 2% LOCAL INJ 5 ML SDV VIAL INJ ONE (13:43)
[2023-12-17] MEDS ORDERED: ONDANSETRON HCL INJ 2MG/ML 2ML 2 MG/ML VIAL ONE (13:43)
[2023-12-17] MEDS ORDERED: GLYCOPYRROLATE INJ 0.2 MG/ML VIAL ONE (13:43)
[2023-12-17] MEDS: Vancomycin IV 1 GM in SODIUM CHLORIDE 0.9% 250ML 250 ML IV ONE (13:43)
[2023-12-17] MEDS ORDERED: KETOROLAC TROMETHAMINE 30 MG/ML VIAL ONE (13:43)
[2023-12-17] MEDS ORDERED: ROCURONIUM BROMIDE 10 MG/ML 5ML VIAL IV ONE (13:43)
[2023-12-17] MEDS ORDERED: NEOSTIGMINE 1 MG/ML 10ML VIAL ONE (13:43)
[2023-12-17] MEDS ORDERED: SEVOFLURANE INHAL SOLN 250 ML PEN BTL ONE (13:43)
[2023-12-17] MEDS ORDERED: SUCCINYLCHOLINE CHLORIDE 20 MG/ML 10ML VIAL ONE (13:43)
[2023-12-17] MEDS ORDERED: LIDOCAINE JELLY 2% 10ML URO-JET ONE (18:27)
[2023-12-17] MEDS ORDERED: BUPIVACAINE 0.5%/EPI 30 ML SDV INJ ONE (18:27)
[2023-12-17] MEDS ORDERED: LIDOCAINE HCL 1% LOCAL INJ 20 ML VIAL ONE (18:27)
[2023-12-17] MEDS: METRONIDAZOLE 500MG/NS 100ML 100 ML IV SCH (23:08)
[2023-12-18] VITALS (10 sets, daily range): BP systolic 116–152; BP diastolic 56–71; PULSE 58–98; RESP 17–18; TEMP 98.1–98.8; O2SAT 95–100
[2023-12-18] MEDS: KETOROLAC TROMETHAMINE 30 MG/ML VIAL IV PRN (01:47)
[2023-12-18 05:39] LABS: BASOPHILS % 0.1 % (0.0-1.0); EOSINOPHILS % 0.4 % (0.0-6.0); HEMATOCRIT 35.8 % (38.2-49.6); HEMOGLOBIN 11.6 g/dL (14.0-18.0); LYMPHOCYTES # (AUTO) 0.6 (1.0-3.2); LYMPHOCYTES % 8.2 % (18.0-39.1); MEAN CORPUSCULAR HEMOGLOBIN 29.7 pg (28-32); MEAN CORPUSCULAR HGB CONC 32.4 g/dL (31-35); MEAN CORPUSCULAR VOLUME 91.6 fL (81-99); MONOCYTES # (AUTO) 0.8 (0.2-0.8); MONOCYTES % 10.1 % (4.4-11.3); NEUTROPHILS # (AUTO) 6.2 (2.1-6.9); NEUTROPHILS % 80.7 % (38.7-80.0); PLATELET COUNT 128 x10e3/uL (140-360); RED BLOOD COUNT 3.91 x10e6/uL (4.3-5.7); WHITE BLOOD COUNT 7.73 x10e3/uL (4.8-10.8)
[2023-12-18 06:25] LABS: ALBUMIN/GLOBULIN RATIO 1.2 (0.8-2.0); BILIRUBIN,TOTAL 0.5 mg/dL (0.2-1.2); CREATININE, SERUM 1.02 mg/dL (0.72-1.25); TOTAL PROTEIN 5.6 g/dL (6.5-8.1)
[2023-12-18] MEDS: METOPROLOL TARTRATE INJ 1 MG/ML VIAL IV ONE (06:44)
[2023-12-18] MEDS: DIGOXIN 0.125 MG TAB PO SCH (09:00)
[2023-12-18] MEDS: METOPROLOL TARTRATE 25 MG TAB PO SCH (09:00)
[2023-12-18] MEDS: AMIODARONE HCL 200 MG TAB PO SCH (11:46)
[2023-12-18] MEDS: HYDROCODONE/APAP 7.5MG-325MG 1 EA TAB PO PRN (13:25)
[2023-12-18] MEDS: HYDROMORPHONE 1MG/1ML INJ IV PRN (17:23)
[2023-12-18] MEDS: INSULIN GLARGINE 100 UNITS/ML VIAL SQ SCH (21:06)
[2023-12-19 00:01] VITALS: BP 120/48; PULSE 76; RESP 18; TEMP 98.4; O2SAT 100
[2023-12-19 03:43] VITALS: BP 135/70; PULSE 122; RESP 20; TEMP 98; O2SAT 97
[2023-12-19 05:17] LABS: BASOPHILS % 0.2 % (0.0-1.0); EOSINOPHILS # (AUTO) 0.1 (0.0-0.4); EOSINOPHILS % 2.2 % (0.0-6.0); HEMATOCRIT 35.4 % (38.2-49.6); HEMOGLOBIN 11.4 g/dL (14.0-18.0); LYMPHOCYTES # (AUTO) 0.8 (1.0-3.2); LYMPHOCYTES % 15.1 % (18.0-39.1); MEAN CORPUSCULAR HEMOGLOBIN 29.4 pg (28-32); MEAN CORPUSCULAR HGB CONC 32.2 g/dL (31-35); MEAN CORPUSCULAR VOLUME 91.2 fL (81-99); MONOCYTES # (AUTO) 0.6 (0.2-0.8); MONOCYTES % 10.1 % (4.4-11.3); NEUTROPHILS # (AUTO) 3.9 (2.1-6.9); PLATELET COUNT 145 x10e3/uL (140-360); RED BLOOD COUNT 3.88 x10e6/uL (4.3-5.7); RED CELL DISTRIBUTION WIDTH 12.9 % (11.7-14.4); WHITE BLOOD COUNT 5.44 x10e3/uL (4.8-10.8)
[2023-12-19 05:50] LABS: ALBUMIN 2.8 g/dL (3.5-5.0); ALBUMIN/GLOBULIN RATIO 1.1 (0.8-2.0); BILIRUBIN,TOTAL 0.5 mg/dL (0.2-1.2); CALCIUM 7.9 mg/dL (8.4-10.2); CREATININE, SERUM 0.85 mg/dL (0.72-1.25); TOTAL PROTEIN 5.4 g/dL (6.5-8.1)
[2023-12-19 05:51] LABS: THYROID STIMULATING HORMONE 4.052 uIU/mL (0.350-4.940)
[2023-12-19 07:53] VITALS: BP 110/71; PULSE 63; RESP 18; TEMP 97.8; O2SAT 100
[2023-12-19 08:12] VITALS: BP 117/58; PULSE 76; RESP 18; TEMP 98.2; O2SAT 98
[2023-12-19] MEDS: MULTIVITAMINS/MINERALS TAB PO SCH (08:30)
[2023-12-19] MEDS: METOPROLOL TARTRATE 25 MG TAB PO SCH (08:35)
[2023-12-19] MEDS: ATORVASTATIN 40 MG TAB PO SCH (08:35)
[2023-12-19 08:42] VITALS: BP 117/58; PULSE 76; RESP 18; TEMP 98.2; O2SAT 98
[2023-12-19] MEDS ORDERED: ACIDOPHILUS1 EAC1 PO (10:48)
[2023-12-19] MEDS ORDERED: LEVOFLOXACIN500 MG PO (10:48)
[2023-12-19] MEDS ORDERED: AMIODARONE HCL200 MG PO (11:52)
[2023-12-19] MEDS ORDERED: HYDROCODON-ACE1 EA12 PO (12:08)
[2023-12-19 12:13] VITALS: BP 149/75; PULSE 78; RESP 19; TEMP 98.2; O2SAT 98
[2023-12-19] MEDS ORDERED: ATORVASTATIN 40 MG TAB PO SCH (21:00)
== END 2023-12-19 14:37 | disposition home or self-care (01) | DRG 394 ==
LOC: ER 18:04 → ERHOLD 19:45 → MED/SURG 22:37
PROVIDERS: ADMIT Internal Medicine; ATTEND Internal Medicine
PROC: 0W9M00Z Drainage of Male Perineum with Drainage Device, Open Approach (ICD-10-PCS; principal; 2023-12-17 18:25)
DX: K61.1 Rectal abscess (principal); Z16.24 Resistance to multiple antibiotics; E11.65 Type 2 diabetes mellitus with hyperglycemia; E78.00 Pure hypercholesterolemia, unspecified; B96.20 Unspecified Escherichia coli [E. coli] as the cause of diseases classified elsewhere; B95.1 Streptococcus, group B, as the cause of diseases classified elsewhere; I48.0 Paroxysmal atrial fibrillation; Z11.52 Encounter for screening for COVID-19; Z79.4 Long term (current) use of insulin; Z79.85 Long-term (current) use of injectable non-insulin antidiabetic drugs; Z79.84 Long term (current) use of oral hypoglycemic drugs; Z90.49 Acquired absence of other specified parts of digestive tract; Z86.16 Personal history of COVID-19; Z83.3 Family history of diabetes mellitus; Z82.49 Family history of ischemic heart disease and other diseases of the circulatory system
CPT/HCPCS: 36415; 36600; 74177; 80053; 82805; 82948; 83036; 83605; 83735; 84443; 85025; 87040; 87071; 87075; 87186; 87205; 93005; 93306; 94799; 99284; J0330; J1170; J1885; J2001; J2270; J2405; J2543; J2710; J7030; J7050; U0002